=== PATIENT | female | born 1960 | race Caucasian/White ===

== ENCOUNTER 2023-04-17 11:29 | Emergency (ER) | payer MEDICARE, OTHER, SELFPAY ==
[2023-04-17 11:33] VITALS: BP 140/100
[2023-04-17 11:58] LABS: % Eosinophils 5.2 % (0-6); % Immature Granulocytes 0.2 % (0-0.5); % Lymphocytes 31.1 % (20.5-51.1); % Monocytes 9.4 % (1.7-9.3); % Neutrophils 53.1 % (42.2-75.2); Absolute Basophils 0.1 10^3/uL (0-0.2); Absolute Eosinophils 0.3 10^3/uL (0-0.7); Absolute Lymphocytes 1.5 10^3/uL (1.2-3.4); Absolute Monocytes 0.5 10^3/uL (0.1-0.6); Absolute Neutrophils 2.5 10^3/uL (1.4-6.5); Hematocrit 42.5 % (37.0-47.0); Hemoglobin 14.7 g/dL (12.0-16.0); Mean Corp Hgb Conc. 34.6 g/dL (33.0-37.0); Mean Corpuscular Hgb 32.5 pg (27.0-31.0); Mean Corpuscular Volume 93.8 fL (81.0-99.0); Mean Platelet Volume 9.2 fL (7.4-10.4); Nucleated Red Blood Cells % 0 %; Platelet Count 236 10^3/uL (130-400); Red Blood Cell Count 4.53 10^6/uL (4.20-5.40); Red Cell Dist. Width 12.1 % (11.5-14.5); White Blood Cell Count 4.8 10^3/uL (4.8-10.8)
[2023-04-17 12:13] LABS: ALT (SGPT) 18 U/L (0-35); AST (SGOT) 27 U/L (14-36); Albumin 4.2 g/dl (3.5-5.0); Alkaline Phosphatase 65 U/L (38-126); Blood Urea Nitrogen 23 mg/dl (7-17); Calcium 9.4 mg/dl (8.4-10.2); Carbon Dioxide 29 mmol/L (22-30); Chloride 99 mmol/L (98-107); Glucose 107 mg/dl (70-99); Potassium 4.1 mmol/L (3.5-5.1); Sodium 138 mmol/L (135-145); Total Bilirubin 0.5 mg/dl (0.2-1.3); Total Protein 7.2 g/dl (6.3-8.2); eGFR > 60.00
--- NOTE | 2023-04-17 12:49 | ED.GENMED ---
History of Present Illness
General
Chief Complaint: Heart Rate Problem
Source: patient and physician
Time Seen by Provider: 04/17/23 12:33
Travel History
Have you had any contact with someone who has COVID-19?: No
Do you have any symptoms of coronavirus? Fever > 100 degrees, chills, cough, shortness of breath, sore throat, loss of taste or smell, muscle aches, or headache?: No
History of Present Illness
History of Present Illness:
63-year-old female with past medical history of atrial fibrillation, sick sinus syndrome status post pacemaker placement presenting to the emergency department from outpatient cardiology office where she was found to be in A-fib/a flutter noting
that over the last few days she has been feeling palpitations and intermittent shortness of breath. Patient had her pacemaker interrogated which revealed the paroxysmal a flutter. Patient has been taking her propafenone for the last 2 days with
minimal relief. She also notes a 13 pound weight gain from her last office visit with cardiology in January. At time of my exam patient's symptoms are all resolved and she has no other concerns. She denies any chest pain, diaphoresis, lower
extremity edema, cough, fevers or infectious symptoms or recent illnesses or any other concerns presently.
Past History
Past History
ED Past Medical History: Arrthythmia, HTN, Psychiatric (Depression, anxiety), Other (Growth Hormone deficiancy, [place], osteoarthritis, gastritis, movement disorder, migraine headaches, constipation) and Other; Negative Asthma, COPD,
Hypercholesterolemia, IDDM or Hypothyroidism
ED Past Surgical History: Other (Cervical laminectomy, facial nerve surgery, breast lumpectomy, hysterectomy, 3 wrist surgeries, foot surgery Reconstruction of the pelvis, intestine and vaginal area with mesh implant)
Social History
Tobacco: Former smoker
Alcohol: Occasional
Drug: None
Personal:
Living: with family
Employment: Disabled
Family History
Family History: Hypertension
Review of Systems
Review of Systems
All Other Systems: ROS reviewed and negative except as documented in HPI and ROS
Phy Exam
Physical Exam
Physical Exam:
GENERAL: Alert , in no apparent distress
EYE: clear conjunctiva
NECK: Supple
ENT: o/p clr, mmm.
CARDIAC: Regular rate and rhythm, no murmur.
LUNGS: Clear breath sounds bilaterally, no acute respiratory distress, no wheezes/rales/rhonchi
ABDOMEN: Soft, without focal tenderness, no r/g, no cvat
NEUROLOGICAL: Alert and oriented
SKIN: Warm and dry, skin intact.
MUSCULOSKELETAL: No edema, well perfused.
PSYCH: Normal and appropriate interaction.
Scores
[id number] Score for Afib Stroke Risk
Age in Years (65=0, 65-74=1, >/=75=2): <65
Sex (Female=+1): Female
Congestive Heart Failure History (Yes=+1): No
Hypertension History (Yes=+1): No
Stroke/TIA/Thromboembolism History (Yes=+2): No
Vascular Disease History (Yes=+1): No
Diabetes Mellitus (Yes=+1): No
Score: 1
Anticoagulation Recommendations: Consider anticoagulation (as validated in nonvalvular fib)
Heart Failure Risk
Heart Failure Risk Score: Not Applicable
Heart Score for Chest Pain Patients
STEMI patient?: Not applicable
Withdrawal Assessment of Alcohol
Withdrawal Assessment Completed?: Not applicable
Course
Orders/Labs/Results
Orders:
Orders
04/17/23 11:35
Electrocardiogram (*1) Urgent
Reason for Study: Chest Pain
EKG- Treatment ONCE
04/17/23 11:47
Complete Blood Count/With Diff Urgent
Comprehensive Metabolic Panel Urgent
NT-proBNP Urgent
Comment: ADD ON
04/17/23 12:34
Apixaban [Eliquis] 5 mg PO NOW STA
Furosemide [Lasix] 40 mg PO NOW STA
Metoprolol Xl [Toprol Xl] 50 mg PO NOW STA
04/17/23 12:56
Add On- LAB Urgent
Tests Added?: BNP
CR Chest - 2 Views Urgent
Comment:
Reason For Exam: afib/aflutter, palpitations
Abnormal Lab Results
04/17/23
11:47
MCH 32.5 H pg
(27.0-31.0)
Monocytes % 9.4 H %
(1.7-9.3)
BUN 23 H mg/dl
(7-17)
Glucose 107 H mg/dl
(70-99)
04/17/23 11:47
04/17/23 11:47
Vital Signs
Initial and Last Documented VS:
Initial Vital Signs
Temp Pulse Resp BP Pulse Ox
98.3 F 76 18 140/100 97
04/17/23 11:33 04/17/23 11:33 04/17/23 11:33 04/17/23 11:33 04/17/23 11:33
Last Documented Vital Signs
Temp Pulse Resp BP Pulse Ox
98.3 F 60 17 135/79 97
04/17/23 11:33 04/17/23 13:24 04/17/23 13:15 04/17/23 13:24 04/17/23 13:16
MDM/Problems Addressed
Differential Diagnosis Includes:
afib/aflutter, CHF, electrolyte imbalance
MDM/Problems Addressed:
63-year-old female presenting to the emergency department from cardiology's office after being found to be in A-fib/a flutter with an increased weight gain. Pacemaker was interrogated and patient was found to have multiple paroxysmal episodes of a
flutter. On arrival to the emergency department patient's heart rate is now back to normal and she is asymptomatic. Cardiology consulted on the patient and are recommending patient to get 50 mg Toprol XL, 40 mg of Lasix p.o. and start patient on
oral anticoagulation with 5 mg of Eliquis. They would like patient to be discharged with these medications but given a dose of each prior to discharge. Will also obtain a chest x-ray. Anticipate discharge pending continued stability.
Chronic conditions affecting care: Arrhythmia
Acute Exacerbation and/or Progression of Chronic Illness: Arrhythmia
*Radiology
Radiology exam reviewed: preliminary read by ED provider (Pacemaker in place but otherwise no complications)
*Pulse Oximetry
Patient hypoxic: no
*EKG
Interpreted by ED Provider?: Yes
Comparison EKG: no changes
Heart Rate: 86
Rhythm: av sequential
*Perianesthesia Manager Interpretation
Rate: normal
Rhythm: av sequential
*Critical Care Note
Total Time (30-74mins, 75-104mins- exclusive of procedures): Not Applicable
Data Reviewed
Review of Other/Old Records Reveals: Labs and Records
Source: patient and physician
Patient Management
Discussion with other providers: Slate Handler
Escalation/DeEscalation of care consider admission/obs:
Patient's labs unremarkable. Her heart rate remains in a paced rhythm without any ectopy or dysrhythmia. Patient maintains she is asymptomatic as well. Patient will discontinue her Rythmol. She will be started on 50 mg metoprolol extended
release once daily, 40 mg of Lasix once daily and Eliquis 5 mg twice daily. Patient will contact cardiology office for follow-up. Aware of return precautions emergency department but otherwise stable for discharge home.
ED Attending Note
-
Portions of this chart may have been created with voice recognition software.� Occasional wrong word or��sound alike� substitutions may have occurred due to the inherent limitations of voice recognition software.
Discharge Plan
Departure
Patient Disposition: Home (Routine Discharge)
Date of Disposition: 04/17/23
Time of Disposition: 14:12
Patient with high blood pressure during this ER visit?: Yes
Discharge Problem:
Paroxysmal atrial flutter
Instructions: Atrial Flutter (DC)
Prescriptions:
New
metoprolol succinate 50 mg tablet extended release 24 hr
50 mg PO DAILY Qty: 30 0RF
Eliquis 5 mg tablet
5 mg PO BID Qty: 60 0RF
furosemide [Lasix] 40 mg tablet
40 mg PO DAILY Qty: 30 0RF
No Action
tramadol 50 MG tablet
50 mg PO DAILY
Patient Comments:
04/17/2023, could not find on PDMP.
primidone 50 mg tablet
50 mg PO BID
tamsulosin 0.4 mg capsule
0.4 mg PO BID
lamotrigine [Lamictal] 100 mg tablet
100 mg PO BID
turmeric 400 mg Capsule
400 mg PO DAILY
Vitamin D3-Zinc
1 tab PO DAILY
Patient Comments:
04/17/2023, contains quercetin and vitamin C as well.
loperamide [Imodium] 2 mg Capsule
4 mg PO DAILYPRN PRN (Reason: diarrhea)
propranolol 60 mg Capsule,Extended Release 24 Hr
60 mg PO DAILY
tramadol 50 mg Tablet
50 mg PO HSPRN PRN (Reason: mild pain)
Patient Comments:
04/17/2023, could not find on PDMP.
bisacodyl 10 mg Suppository
10 mg [place] DAILY PRN (Reason: constipation)
diphenhydramine HCl [Benadryl] 25 mg Capsule
50 mg PO HS PRN (Reason: sleep)
esomeprazole magnesium 40 mg Capsule,Delayed Release(Dr/Ec)
40 mg PO DAILY PRN (Reason: gerd)
ibuprofen [Advil] 200 mg Tablet
600 mg PO BIDPRN PRN (Reason: mild pain)
diphenhydramine-acetaminophen [Tylenol PM Extra Strength] 25-500 mg Tablet
1 tab PO HS PRN (Reason: sleep)
Referrals:
Mayelin Monae CRNP [Specified Professional Personl] - (Please call for appointment to have a close follow up office visit)
UNKNOWN - PT DOES,NOT KNOW [Family Provider] -
Interventions
Interventions:
*Risk Screen - Suicide Last Done: 04/17/23 11:33
*General Assessment Last Done: 04/17/23 14:50
*Neglect/Abuse Screening Last Done: 04/17/23 11:33
ED- Fall Risk Assessment Last Done: 04/17/23 14:50
*ED COVID-19 Vaccine History Last Done: 04/17/23 11:33
*Nursing Disposition Last Done: 04/17/23 14:50
ED- Cardiac Assessment Last Done: 04/17/23 13:16
ED- Pulmonary Assessment Last Done: 04/17/23 13:16
[2023-04-17 13:15] VITALS: BP 135/75
[2023-04-17] MEDS: TOPROL XL 50 MG PO (13:24)
[2023-04-17] MEDS: ELIQUIS 5 MG PO (13:24)
[2023-04-17] MEDS: LASIX 40 MG PO (13:24)
[2023-04-17 13:52] LABS: NT-proBNP 506 pg/ml
== END 2023-04-17 14:51 | disposition home or self-care (01) ==
LOC: EMR 11:29
PROVIDERS: Emergency Medicine; EMERGENCY PHYSICIAN Emergency Medicine
DX: I48.92 Unspecified atrial flutter (principal); Z95.0 Presence of cardiac pacemaker; Z87.891 Personal history of nicotine dependence; R03.0 Elevated blood-pressure reading, without diagnosis of hypertension
CPT/HCPCS: 99285; 93288; 71046; 80053; 83880; 85025; 93005

== ENCOUNTER → 2023-04-25 10:04 | Day surgery (SDC) | payer MEDICARE, OTHER, SELFPAY ==
[2023-04-25 11:54] VITALS: BMI 28.2
== END ==
LOC: CATH 10:04
PROVIDERS: ATTENDING PHYSICIAN Internal Medicine Cardiovascular Disease; OTHER PHYSICIAN Internal Medicine Cardiovascular Disease
DX: I48.19 Other persistent atrial fibrillation (principal); I34.0 Nonrheumatic mitral (valve) insufficiency; I49.5 Sick sinus syndrome; Z95.0 Presence of cardiac pacemaker; I10 Essential (primary) hypertension; G51.0 Bell's palsy; Z87.891 Personal history of nicotine dependence; Z79.01 Long term (current) use of anticoagulants
CPT/HCPCS: 93312; 93320; 93325; 92960; 93005

== ENCOUNTER 2023-06-18 16:59 | Emergency (ER) | payer MEDICARE, OTHER, SELFPAY ==
[2023-06-18 17:04] VITALS: BP 154/108
--- NOTE | 2023-06-18 18:22 | ED.GENMED ---
History of Present Illness
General
Chief Complaint: Urinary Symptoms
Source: patient
Exam Limitations: none
Time Seen by Provider: 06/18/23 17:52
Travel History
Have you had any contact with someone who has COVID-19?: No
Do you have any symptoms of coronavirus? Fever > 100 degrees, chills, cough, shortness of breath, sore throat, loss of taste or smell, muscle aches, or headache?: No
History of Present Illness
History of Present Illness:
This is a 63 year old female that comes in with c/o not being able to urinate. States that she stared to feel funny yesterday. States that she then drove 2-3 hours to come visit a friend today. States that by the time she got there she was unable to
urinate. States that she does take Flomax. States that she feels SOB and that her abd is sore. States that she also had some left sided back pain. Denies any fever, chills, chest pain, nausea, vomiting, diarrhea, headache, urinary burning.
Past History
Past History
ED Past Medical History: Arrthythmia (Atrial fib), HTN, Seizures, Psychiatric (Depression, anxiety), Other (Growth Hormone deficiency, [place] Palsy, osteoarthritis, gastritis, movement disorder, migraine headaches, constipation, Tremors, Bladder
prolapse) and Other; Negative Asthma, COPD, Hypercholesterolemia, IDDM or Hypothyroidism
ED Past Surgical History: Bowel resection (Colectomy), Cardiac (pacemaker), Gynecological (Pelvic reconstruction. Hysterectomy, [place] Lympectomy X 3), Orthopedic (Cervical laminectomy, Multiple wrist surgery, ), Urological (Ureteral stent, ) and
Other ( facial nerve surgery, intestine and vaginal area with mesh implant)
Social History
Tobacco: Former smoker
Alcohol: Daily (wine 2 glasses)
Drug: None
Personal:
Living: with family
Employment: Disabled
Family History
Family History: Hypertension
Review of Systems
Review of Systems
All Other Systems: ROS reviewed and negative except as documented in HPI and ROS
Constitutional: Reports no symptoms; Denies fever or chills
EENT: Reports no symptoms
Respiratory: Reports trouble breathing; Denies cough
Cardiac: Reports no symptoms; Denies chest pain
ABD/GI: Reports abdominal pain; Denies nausea, vomiting or diarrhea
: Reports difficulty voiding; Denies dysuria, frequency or urgency
Musculoskeletal: Reports no symptoms
Skin: Reports no symptoms
Neurological: Reports no symptoms; Denies dizzy or headache
Psychiatric: Reports no symptoms
Phy Exam
General Physical Exam
General Presentation: mild distress
General age: appears stated age
General Skin: warm and dry
General Habitus: normal
General Mental: tearful
General Hydration: appears well hydrated
ENT Exam
ENT Exam: TM's normal, pharynx normal and neck supple
Eye Exam
Eye Exam: EOMI
Cardiovascular Exam
Cardiovascular Exam: regular rate/rhythm, no edema and normal peripheral pulses
Pulmonary Exam
Pulmonary Exam: lungs clear, no respiratory distress, no rales, chest non tender, no crackles, no rhonchi, no wheezing and no cough
Gastrointestinal Exam
Gastrointestinal Exam: normal bowel sounds, non tender, soft, no organomegaly, no pulsatile mass and non distended
Musculoskeletal Exam
Musculoskeletal Exam: full ROM and no edema
Skin Exam
Skin Exam: normal color, warm/dry, no rash and no petechia
Psychiatric Exam
Psychiatric Exam: anxious
Course
Orders/Labs/Results
Orders:
Orders
06/18/23 18:09
Straight cath- Treatment ONCE
0.9% Sodium Chloride 1000 ml [Nss] 1,000 ml IV BOLUS
06/18/23 18:31
Complete Blood Count/With Diff Urgent
Comprehensive Metabolic Panel Urgent
Urinalysis Reflex To Culture Urgent
Date Specimen was Collected: 06/18/23
Time Specimen was Collected: 18:25
Urine Microscopic Reflex Cult Urgent
06/18/23 19:17
CT Abd/pel Without Iv Or Oral Urgent
Comment:
Reason For Exam: Difficulty urinating,
Abnormal Lab Results
06/18/23
18:31
MCH 31.8 H pg
(27.0-31.0)
Monocytes % 9.7 H %
(1.7-9.3)
BUN 21 H mg/dl
(7-17)
Urine Ketones Trace A
(Negative)
Ur Occult Blood Reflex Trace A
(Negative)
Urine RBC 3-6 A /HPF
(0-2)
06/18/23 18:31
06/18/23 18:31
Vital Signs
Initial and Last Documented VS:
Initial Vital Signs
Temp Pulse Resp BP Pulse Ox
98.8 F 72 20 154/108 95
06/18/23 17:04 06/18/23 17:04 06/18/23 17:04 06/18/23 17:04 06/18/23 17:04
Last Documented Vital Signs
Temp Pulse Resp BP Pulse Ox
98.8 F 72 20 154/108 95
06/18/23 17:04 06/18/23 17:04 06/18/23 17:04 06/18/23 17:04 06/18/23 17:04
MDM/Problems Addressed
Differential Diagnosis Includes:
Pyelonephritis, UTI, Renal calculus
MDM/Problems Addressed:
This is a 63 year old female that comes in with c/o not being able to urinate. States that she felt something funny yesterday and then today she drove 2-3 hours to come visit her friend. States that by the time she got there shew as unable to
urinate.
Will check labs, Bladder scan, Straight cath and Urine. Will give IV fluids.
back into see patient. Explained that her blood work shows that she is dehydrated. Your CT is negative for any renal calculus. Your kidneys and bladder are normal. Please increase your water intake to 8-8oz glasses daily. Follow up with the Family
doctor and your urologist when you get home. IF YOU HAVE ANY OTHER CONCERNS PLEASE RETURN TO THE EMERGENCY ROOM.
Chronic conditions affecting care: Other (Renal stents)
Acute Exacerbation and/or Progression of Chronic Illness:
NA
*Radiology
Radiology exam reviewed: radiology read reviewed (CT-NO convincing evidence for urinary tract calculi. No focal abnormality of the unenhanced kidneys or bladder. Fatty infiltration of the liver. 8mm cyst within the right lobe of the liver, stable.
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 Evidence of previous partial colectomy ), all reviewed NAD by ED Provider (CT cont- with ileocolonic anastomosis in the right upper quadrant. No evidence for bowel obstruction. No
evidence of free intraperitoneal air. Moderate amount of stool within the colon as well as the distal ileum, but no evidence for bowel wall thickening with no findings to suggest stercoral ) and other (Ct cont= to suggest stercoral colitis. Bony
degenerative changes as described. )
*Pulse Oximetry
Patient hypoxic: no
*EKG
Interpreted by ED Provider?: NA
Rate: EKG- N/A
*Automatic Machines Supervisor Interpretation
Rate: Automatic Machines Supervisor- N/A
*Critical Care Note
Total Time (30-74mins, 75-104mins- exclusive of procedures): Not Applicable
ED Attending Note
-
Portions of this chart may have been created with voice recognition software.� Occasional wrong word or��sound alike� substitutions may have occurred due to the inherent limitations of voice recognition software.
Discharge Plan
Departure
Patient Disposition: Home (Routine Discharge)
Date of Disposition: 06/18/23
Time of Disposition: 22:03
Patient with high blood pressure during this ER visit?: Yes
Condition: Good
Covid-19: Not Applicable
Discharge Problem:
Dehydration
Instructions: Dehydration, Adult (DC), BLOOD PRESSURE
Prescriptions:
No Action
primidone 50 mg tablet
50 mg PO BID
tamsulosin 0.4 mg capsule
0.4 mg PO BID
lamotrigine [Lamictal] 100 mg tablet
100 mg PO BID
loperamide [Imodium] 2 mg Capsule
4 mg PO DAILYPRN PRN (Reason: diarrhea)
bisacodyl 10 mg Suppository
10 mg [place] DAILY PRN (Reason: constipation)
diphenhydramine HCl [Benadryl] 25 mg Capsule
50 mg PO HS PRN (Reason: sleep)
esomeprazole magnesium 40 mg Capsule,Delayed Release(Dr/Ec)
40 mg PO DAILY PRN (Reason: gerd)
ibuprofen [Advil] 200 mg Tablet
600 mg PO BIDPRN PRN (Reason: mild pain)
diphenhydramine-acetaminophen [Tylenol PM Extra Strength] 25-500 mg Tablet
1 tab PO HS PRN (Reason: sleep)
Eliquis 5 mg tablet
5 mg PO BID Qty: 60 0RF
furosemide [Lasix] 40 mg tablet
40 mg PO DAILY Qty: 30 0RF
Ascorbic Acid (Vitamin C)
800 mg PO DAILY
propafenone 150 mg Tablet
150 mg PO TID
tramadol [Ultram] 50 mg Tablet
50 mg PO BID
cholecalciferol (vitamin D3) [Vitamin D3] 125 mcg (5,000 unit) Tablet
125 mcg PO DAILY
Magnesium
250 mg PO DAILY
Turmeric
1,000 mg PO DAILY
Zinc
30 mg PO DAILY
metoprolol succinate 50 mg tablet extended release 24 hr
75 mg PO BID
Referrals:
UNKNOWN - PT NOT,INTERVIEWE [Family Provider] -
Activity Restrictions/Additional Instructions:
As discussed, your blood work shows that you are dehydrated. Please increase your water intake to 8-8z glasses daily. Please continue with your Flomax as prescribed. Follow up with the family doctor and your Urologist. Your CT does show a Mesenteric
panniculitis which is most likely a viral syndrome and may cause some abd discomfort. Your may also have diarrhea. IF YOU HAVE ANY OTHER CONCERNS PLEASE RETURN TO THE EMERGENCY ROOM.
Interventions
Interventions:
*Risk Screen - Suicide Last Done: 06/18/23 17:04
*General Assessment Last Done: 06/18/23 17:04
*Neglect/Abuse Screening Last Done: 06/18/23 17:04
ED-Female Genitourinary Assessment Last Done: 06/18/23 19:37
Discharge Date and Time
Print Language: [place]
[2023-06-18] MEDS: NSS 1000 IV (18:33)
[2023-06-18 18:40] LABS: % Basophils 0.9 % (0-2); % Eosinophils 3.5 % (0-6); % Immature Granulocytes 0.2 % (0-0.5); % Lymphocytes 26.1 % (20.5-51.1); % Monocytes 9.7 % (1.7-9.3); % Neutrophils 59.6 % (42.2-75.2); Absolute Basophils 0.1 10^3/uL (0-0.2); Absolute Eosinophils 0.2 10^3/uL (0-0.7); Absolute Lymphocytes 1.7 10^3/uL (1.2-3.4); Absolute Monocytes 0.6 10^3/uL (0.1-0.6); Absolute Neutrophils 3.8 10^3/uL (1.4-6.5); Hematocrit 38.6 % (37.0-47.0); Hemoglobin 13.5 g/dL (12.0-16.0); Mean Corpuscular Hgb 31.8 pg (27.0-31.0); Mean Platelet Volume 8.7 fL (7.4-10.4); Nucleated Red Blood Cells % 0 %; Platelet Count 236 10^3/uL (130-400); Red Blood Cell Count 4.24 10^6/uL (4.20-5.40); Red Cell Dist. Width 12.2 % (11.5-14.5); White Blood Cell Count 6.4 10^3/uL (4.8-10.8)
[2023-06-18 18:41] LABS: Urine Albumin Trace (Neg - Trace); Urine Bilirubin Negative (Negative); Urine Character Clear (Clear); Urine Color Yellow; Urine Glucose Negative (Negative); Urine Ketone Trace (Negative); Urine Leukocyte Negative (Negative); Urine Nitrite Negative (Negative); Urine Occult Blood Trace (Negative); Urine Specific Gravity 1.025 (<1.030); Urine Urobilinogen Negative (Neg - 1+)
[2023-06-18 18:53] LABS: Urine White Cell None Seen /HPF (0-5)
[2023-06-18 18:55] LABS: ALT (SGPT) 13 U/L (0-35); AST (SGOT) 26 U/L (14-36); Albumin 4.5 g/dl (3.5-5.0); Alkaline Phosphatase 72 U/L (38-126); Blood Urea Nitrogen 21 mg/dl (7-17); Calcium 9.6 mg/dl (8.4-10.2); Carbon Dioxide 30 mmol/L (22-30); Chloride 102 mmol/L (98-107); Glucose 97 mg/dl (70-99); Potassium 4.4 mmol/L (3.5-5.1); Sodium 138 mmol/L (135-145); Total Bilirubin 0.4 mg/dl (0.2-1.3); Total Protein 7.6 g/dl (6.3-8.2); eGFR > 60.00
[2023-06-18 22:23] VITALS: BP 144/96
== END 2023-06-18 22:35 | disposition home or self-care (01) ==
LOC: EMR 16:59
PROVIDERS: Clinical Nurse Specialist Family Health; EMERGENCY PHYSICIAN Emergency Medicine
DX: E86.0 Dehydration (principal); I48.91 Unspecified atrial fibrillation; I10 Essential (primary) hypertension; G40.909 Epilepsy, unspecified, not intractable, without status epilepticus; F41.8 Other specified anxiety disorders; E23.0 Hypopituitarism; M19.90 Unspecified osteoarthritis, unspecified site; Z82.49 Family history of ischemic heart disease and other diseases of the circulatory system; Z87.19 Personal history of other diseases of the digestive system; Z87.891 Personal history of nicotine dependence; Z90.49 Acquired absence of other specified parts of digestive tract; Z90.710 Acquired absence of both cervix and uterus; Z95.0 Presence of cardiac pacemaker
CPT/HCPCS: 99284; 96360; 74176; 80053; 81003; 81015; 85025

== ENCOUNTER 2024-03-01 20:28 | Observation (INO) | payer MEDICARE, OTHER, SELFPAY ==
[2024-03-01] VITALS (7 sets, daily range): BP systolic 137–170; BP diastolic 83–99; BMI 30.1
[2024-03-01 17:15] LABS: % Eosinophils 4.2 % (0-6); % Immature Granulocytes 0.2 % (0-0.5); % Lymphocytes 26.9 % (20.5-51.1); % Monocytes 12.3 % (1.7-9.3); % Neutrophils 55.4 % (42.2-75.2); Absolute Basophils 0.1 10^3/uL (0-0.2); Absolute Eosinophils 0.2 10^3/uL (0-0.7); Absolute Lymphocytes 1.4 10^3/uL (1.2-3.4); Absolute Monocytes 0.6 10^3/uL (0.1-0.6); Absolute Neutrophils 2.8 10^3/uL (1.4-6.5); Hematocrit 36.6 % (37.0-47.0); Hemoglobin 12.4 g/dL (12.0-16.0); Mean Corp Hgb Conc. 33.9 g/dL (33.0-37.0); Mean Corpuscular Hgb 31.8 pg (27.0-31.0); Mean Corpuscular Volume 93.8 fL (81.0-99.0); Mean Platelet Volume 9.1 fL (7.4-10.4); Nucleated Red Blood Cells % 0 %; Platelet Count 203 10^3/uL (130-400); Red Cell Dist. Width 12.1 % (11.5-14.5); White Blood Cell Count 5.1 10^3/uL (4.8-10.8)
[2024-03-01 17:25] LABS: ALT (SGPT) 48 U/L (0-35); AST (SGOT) 66 U/L (14-36); Alkaline Phosphatase 59 U/L (38-126); Blood Urea Nitrogen 21 mg/dl (7-17); Calcium 9.2 mg/dl (8.4-10.2); Carbon Dioxide 30 mmol/L (22-30); Chloride 100 mmol/L (98-107); Estimated Creatinine Clearance 101 ml/min; Glucose 99 mg/dl (70-99); Potassium 3.9 mmol/L (3.5-5.1); Sodium 137 mmol/L (135-145); Total Bilirubin 0.5 mg/dl (0.2-1.3); Total Protein 6.6 g/dl (6.3-8.2); eGFR > 60.00
[2024-03-01 17:37] LABS: NT-proBNP 92.5 pg/ml; Troponin I < 0.012 ng/ml
--- NOTE | 2024-03-01 17:45 | ED.GENMED ---
History of Present Illness
General
Chief Complaint: Cardiac Symptoms
Source: patient
Exam Limitations: none
Time Seen by Provider: 03/01/24 17:14
Nursing documentation reviewed up to this point in time: agreed with
History of Present Illness
History of Present Illness:
63-year-old female with a past medical history of Almonte's palsy, atrial fibrillation who presents to the emergency department for evaluation of palpitations, shortness of breath and chest/shoulder discomfort. Patient reports that she was at [employer]
pushing the shopping cart this afternoon when she began to have sudden onset of shortness of breath, dizziness, palpitations and shoulder/upper back discomfort. She says that the symptoms lasted for a few minutes and were significant enough to
cause her to sit down to rest. She says with a few minutes of rest symptoms resolved however she has noticed symptoms return with exertion since then and ultimately came to the ER to be evaluated. She denies any symptoms at present. She denies
any associated chest pain rather describes a discomfort/palpitation sensation. She does have a history of A-fib but says that the symptoms feels somewhat dissimilar to her normal A-fib symptoms. She follows with Dr. Frederick for cardiology. She is
on Eliquis for A-fib.
Past History
Past History
ED Past Medical History: Arrthythmia (Atrial fib), HTN, Seizures, Psychiatric (Depression, anxiety), Other (Growth Hormone deficiency, Perham Palsy, osteoarthritis, gastritis, movement disorder, migraine headaches, constipation, Tremors, Bladder
prolapse) and Other; Negative Asthma, COPD, Hypercholesterolemia, IDDM or Hypothyroidism
ED Past Surgical History: Bowel resection (Colectomy), Cardiac (pacemaker), Gynecological (Pelvic reconstruction. Hysterectomy, Brest Lympectomy X 3), Orthopedic (Cervical laminectomy, Multiple wrist surgery, ), Urological (Ureteral stent, ) and
Other ( facial nerve surgery, intestine and vaginal area with mesh implant)
Social History
Tobacco: Former smoker
Alcohol: Daily (wine 2 glasses)
Drug: None
Personal:
Living: with family
Employment: Disabled
Family History
Family History: Hypertension
Review of Systems
Review of Systems
All Other Systems: ROS reviewed and negative except as documented in HPI and ROS
Constitutional: Denies fever
Respiratory: Reports trouble breathing; Denies cough
Cardiac: Reports palpitations; Denies chest pain or syncope
ABD/GI: Denies abdominal pain, nausea or vomiting
: Denies flank pain
Musculoskeletal: Reports back pain; Denies neck pain
Neurological: Reports dizzy; Denies headache
Phy Exam
Physical Exam
Physical Exam:
General: Awake, alert, oriented x3; no acute distress
Head: Normocephalic, atraumatic
Eyes: Conjunctiva normal, sclera anicteric
Throat: Airway intact, handling secretions
Neck: Trachea midline, supple without meningismus
Lungs: Clear to auscultation bilaterally, no wheezing, rales, rhonchi
Heart: Regular rate and rhythm, no murmurs, gallops, or rubs
Abd: Soft, non distended, nontender
Neuro: No gross deficits
Skin: no rash
Extremities: No edema in extremities, equal pulses in all extremities
Scores
Heart Failure Risk
Heart Failure Risk Score: Not Applicable
Heart Score for Chest Pain Patients
STEMI patient?: Not applicable
Withdrawal Assessment of Alcohol
Withdrawal Assessment Completed?: Not applicable
Course
Orders/Labs/Results
Orders:
Orders
03/01/24 15:49
EKG [Electrocardiogram (*1)] Urgent
Reason for Study: Atrial Fibrillation
EKG- Treatment ONCE
03/01/24 17:04
BNP [NT-proBNP] Urgent
CBC/With Diff [Complete Blood Count/With Diff] Urgent
CMP [Comprehensive Metabolic Panel] Urgent
Troponin I Urgent
03/01/24 17:18
CR Chest - 2 Views Urgent
Comment:
Reason For Exam: sob
03/01/24 17:32
D-Dimer Urgent
03/01/24 17:49
Interrogate Pacemaker- Treatment ONCE
03/01/24 18:47
CARDIOLOGY CONSULT Urgent
Consulting Provider: Chyna Peralta
Was physician already notified: Yes
03/01/24 20:00
Troponin I Urgent
Abnormal Lab Results
03/01/24
17:04
RBC 3.90 L 10^6/uL
(4.20-5.40)
Hct 36.6 L %
(37.0-47.0)
MCH 31.8 H pg
(27.0-31.0)
Monocytes % 12.3 H %
(1.7-9.3)
BUN 21 H mg/dl
(7-17)
AST 66 H U/L
(14-36)
ALT 48 H U/L
(0-35)
03/01/24 17:04
03/01/24 17:04
Vital Signs
Initial and Last Documented VS:
Initial Vital Signs
Temp Pulse Resp BP Pulse Ox
37.0 C 77 20 137/90 96
03/01/24 15:51 03/01/24 15:51 03/01/24 15:51 03/01/24 15:51 03/01/24 15:51
Last Documented Vital Signs
Temp Pulse Resp BP Pulse Ox
37.0 C 61 19 147/88 95
03/01/24 15:51 03/01/24 19:00 03/01/24 19:00 03/01/24 19:00 03/01/24 19:00
MDM/Problems Addressed
Differential Diagnosis Includes:
Anginal symptoms/ACS, paroxysmal atrial fibrillation, PVCs, SVT/atrial tach, PE, CHF
MDM/Problems Addressed:
63-year-old female present for evaluation of exertional breathlessness, dizziness, chest discomfort/palpitations that started this afternoon. Vitals and exam as above. EKG shows sinus rhythm. Will place an IV send labs including a CBC and a CMP,
troponin. Check D-dimer. Check a chest x-ray. Will interrogate her device. Reassess after the above.
Labs reviewed: CBC unremarkable, CMP no clinically significant abnormalities�marginal transaminitis unclear acute clinical significance but no signs or symptoms of hepatobiliary pathology. D-dimer negative. Troponin initially negative will trend.
Chest x-ray reviewed by me no acute disease. Case discussed with cardiology�will plan to admit for trending of troponins, cardiology consultation. N.p.o. past midnight. Case discussed with hospitalist for admission.
Chronic conditions affecting care:
Atrial fib
*Radiology
Radiology exam reviewed: preliminary read by ED provider and radiology read reviewed
*Pulse Oximetry
Patient hypoxic: no
*EKG
Interpreted by ED Provider?: Yes
Heart Rate: 65
Rate: normal
Rhythm: sinus
[place]: normal axis
Interval: normal interval
QRS Pattern: normal QRS
Ischemia: non-specific ST changes
*Critical Care Note
Total Time (30-74mins, 75-104mins- exclusive of procedures): Not Applicable
Data Reviewed
Review of Other/Old Records Reveals: Labs and Records
Source: patient and records
Patient Management
Discussion with other providers: Hospitalist (Discussed with hospitalist)
Escalation/DeEscalation of care consider admission/obs:
Admission indicate
ED Attending Note
-
Portions of this chart may have been created with voice recognition software.� Occasional wrong word or��sound alike� substitutions may have occurred due to the inherent limitations of voice recognition software.
Discharge Plan
Departure
Patient Disposition: Admit
Date of Disposition: 03/01/24
Time of Disposition: 19:23
Admit to doctor: Bennie
Presentation/result/management discussed w/ accepting MD/DO: Hospitalist
Discharge Problem:
Exertional dyspnea, Palpitations, Chest discomfort
Prescriptions:
No Action
primidone 50 mg tablet
50 mg PO BID
tamsulosin 0.4 mg capsule
0.4 mg PO BID
lamotrigine [Lamictal] 100 mg tablet
100 mg PO BID
loperamide [Imodium] 2 mg Capsule
4 mg PO DAILYPRN PRN (Reason: diarrhea)
bisacodyl 10 mg Suppository
10 mg ND DAILY PRN (Reason: constipation)
diphenhydramine HCl [Benadryl] 25 mg Capsule
50 mg PO HS PRN (Reason: sleep)
esomeprazole magnesium 40 mg Capsule,Delayed Release(Dr/Ec)
40 mg PO DAILY PRN (Reason: gerd)
ibuprofen [Advil] 200 mg Tablet
600 mg PO BIDPRN PRN (Reason: mild pain)
diphenhydramine-acetaminophen [Tylenol PM Extra Strength] 25-500 mg Tablet
1 tab PO HS PRN (Reason: sleep)
Eliquis 5 mg tablet
5 mg PO BID Qty: 60 0RF
furosemide [Lasix] 40 mg tablet
40 mg PO DAILY Qty: 30 0RF
Ascorbic Acid (Vitamin C)
800 mg PO DAILY
propafenone 150 mg Tablet
150 mg PO TID
tramadol [Ultram] 50 mg Tablet
50 mg PO BID
cholecalciferol (vitamin D3) [Vitamin D3] 125 mcg (5,000 unit) Tablet
125 mcg PO DAILY
Magnesium
250 mg PO DAILY
Turmeric
1,000 mg PO DAILY
Zinc
30 mg PO DAILY
metoprolol succinate 50 mg tablet extended release 24 hr
75 mg PO BID
Referrals:
UNKNOWN - PT DOES,NOT KNOW [Family Provider] -
Interventions
Interventions:
*Risk Screen - Suicide Last Done: 03/01/24 15:51
*General Assessment Last Done: 03/01/24 15:51
*Neglect/Abuse Screening Last Done: 03/01/24 15:51
ED- Fall Risk Assessment Last Done: 03/01/24 17:00
ED- Pulmonary Assessment Last Done: 03/01/24 17:00
ED- Cardiac Assessment Last Done: 03/01/24 17:00
Discharge Date and Time
Print Language: KHMER
[2024-03-01 17:52] LABS: D-Dimer < 0.27 ug/mlFEU (0.00-0.50)
[2024-03-01] MEDS: LOW STRENGTH ASPIRIN 324 MG PO (19:49)
--- NOTE | 2024-03-01 20:08 | HPS.HSE ---
Family Physician
-
Family Physician: NOT KNOW UNKNOWN - PT DOES
Chief Complaint
-
Chest Pain, MA
History of Present Illness
Patient is a 63y F with PMH significant for hypertension, paroxysmal A-Fib and CHF who presents to ED complaining of chest pain and SOB. Patient notes that her is currently admitted here at for CHF and new ESRD. Patient was walking
through a store today around 12:30 PM when she developed chest tightness, SOB, 'cold, clammy' feeling and diaphoresis. Patient sat down and her symptoms resolved. When she stood and began walking her symptoms recurred. She has had persistence of
this for the past several hours - symptoms occurring with exertion and then resolving / improving with rest.
She states that current sensation does not feel similar to prior episodes of tachyarrhythmia with A-Fib that she has had.
In the ED she is resting comfortably - though she reports intermittent / brief episodes of palpitations / chest tightness even at rest.
Patient was previously followed here in [facility] by [facility] Card[facility].
She moved to [place], [place] and has been followed there mor recently.
In September of this year she underwent PVI Ablation at [facility].
Patient states that - following that procedure - she has had new issues with CHF and HTN.
Medical History
Past Medical History
Past Medical History: Reports Other
Additional Past Medical History:
Paroxysmal Atrial Fibrillation
SSS s/p PPM
HF - Unknown Type
Hypertension
Left Almonte's Palsy
Essential Tremor
Partial Seizure Disorder
Bipolar Disorder
Colonic Inertia
EDGARDO on CPAP
Past Surgical History: Reports Other
Additional Past Surgical History:
Hysterectomy
Carpal Tunnel Surgery
Right Shoulder Surgery
PVI Ablation (September 2023)
Colon Resection
Cervical Laminectomy
Social History
Tobacco: Former Smoker (Quit smoking about 30y ago. Approx 20 pack years total use.)
Alcohol: Occasional (2 glasses of wine, 3-5 days per week. Recently increased per patient.)
Drug: None
Personal:
Family History
Family History: Not pertinent
Allergies / Home Medications
Allergies reflects when Allergies were last updated in [employer].
Home Medications with original date entered in [employer]
Allergy/Medication List:
Allergies
Allergy/AdvReac Type Severity Reaction Status Date / Time
azithromycin [From Zithromax] Allergy Rash Verified 06/18/23 17:07
Influenza Virus Vaccines Allergy sick/neuros Verified 06/18/23 17:07
is
prednisone Allergy mental Verified 06/18/23 17:07
disturbance
steroids Allergy mental Uncoded 06/18/23 17:07
disturbance
Home Medications
lamotrigine 100 mg tablet (Lamictal) 100 mg PO DAILY 01/02/23
primidone 50 mg tablet 50 mg PO BID 01/02/23
tamsulosin 0.4 mg capsule 0.4 mg PO BID 01/02/23
apixaban 5 mg tablet (Eliquis) 5 mg PO BID #60 tabs 04/17/23
diphenhydramine 25 mg-acetaminophen 500 mg tablet (Tylenol PM Extra Strength) 1 tab PO HSPRN PRN sleep 04/17/23
ibuprofen 200 mg tablet (Advil) 600 mg PO BIDPRN PRN mild pain 04/17/23
metoprolol succinate 50 mg tablet,extended release 24 hr 50 mg PO DAILY 04/25/23
tramadol 50 mg tablet 50 mg PO BID 04/25/23
Z-Stack 1 cap PO DAILY 03/01/24
furosemide 40 mg tablet (Lasix) 40 mg PO BID 03/01/24
lamotrigine 25 mg tablet (Lamictal) 50 mg PO NOON 03/01/24
losartan 50 mg tablet 25 mg PO DAILY 03/01/24
pantoprazole 40 mg tablet,delayed release (Protonix) 40 mg PO DAILY 03/01/24
Review of Systems
-
History Source: Patient
A 12 point ROS was completed and negative except as noted: Yes
Constitutional: Reports Fatigue; Denies Fever, Weight Gain, Weight Loss or Chills
EENT: Denies Sore Throat
Respiratory: Reports Trouble Breathing; Denies Cough
Cardiac: Reports Chest Pain, Diaphoresis and Palpitations; Denies Syncope
Abdomen/GI: Denies Abdominal Pain, Nausea, Vomiting or Diarrhea
: Denies Dysuria or Frequency
Musculoskeletal: Denies Joint Pain or Edema
Neurological: Reports Dizzy; Denies Headache
Psych: Reports Depression and Anxiety
Physical Exam
Vital Signs
Vital Signs
Temp Pulse Resp BP Pulse Ox
98.6 F 61 19 147/88 95
03/01/24 15:51 03/01/24 19:00 03/01/24 19:00 03/01/24 19:00 03/01/24 19:00
Physical Exam
General: Other (63y F in no acute distress.)
HEENT: Moist mucous membranes, PERRLA and Other (Chronic L facial droop secondary to Almonte's palsy.)
Respiratory: Clear; No Wheezes, Rales or Rhonchi
Cardiac: S1/S2 and Regular Rhythm; No Murmur
GI: Soft, Non Tender, Non Distended and Normal Bowel Sounds
Musculoskeletal: No Clubbing, No Cyanosis and Other (Trace edema b/l ankles.)
Neuro: AO x 3
Laboratory Results
-
03/01/24 17:04
03/01/24 17:04
Laboratory Results
Total Bilirubin 0.5 mg/dl (0.2-1.3) 03/01/24 17:04
AST 66 U/L (14-36) H 03/01/24 17:04
ALT 48 U/L (0-35) H 03/01/24 17:04
Alkaline Phosphatase 59 U/L (38-126) 03/01/24 17:04
Troponin I < 0.012 ng/ml 03/01/24 17:04
Impression/Plan
-
A/P: Patient is a 63y F with PMH significant for A-Fib, CHF and hypertension who presents to ED complaining of chest pain and SOB.
Chest Pain
- Observe overnight for further evaluation and treatment.
- Symptom constellation concerning for ACS in patient with multiple risk factors.
- EKG with non-specific ST changes - but appears improved from April tracing.
- Initial troponin undetectable - continue to trend.
- Continue ASA, metoprolol, etc.
- Follow symptoms, serial trop, etc.
- Cardiology evaluation for additional recommendations.
Paroxysmal Atrial Fibrillation
SSS s/p PPM
- Stable. Intermittent A-pacing noted on tele.
- s/p ablation at [facility] in September.
- Interrogation performed in the ED - report pending.
- Continue current medications including Eliquis for stroke risk reduction.
Chronic HF- Unknown Type
- Stable. Does not appear grossly overloaded at present. BNP unremarkable.
- Continue current Lasix and monitor I/Os, daily weights, etc.
- Update Echo.
Benign Hypertension
- Stable. Continue current med regimen and adjust as needed.
Partial Seizure Disorder
Essential Tremor
Bipolar Disorder
- Stable. Continue current med regimen and monitor for any new symptoms.
DVT Prophylaxis: On Eliquis
Code Status: Full
[2024-03-01 20:30] LABS: Troponin I < 0.012 ng/ml
--- NOTE | 2024-03-01 22:00 | PTCARENOTE ---
Patient walked into her room. Patient AAOX3. Patient is npo at midnight. MSAS protocol initiated. Patient oriented to room, no complaints of chest pain. Call maria within reach. Will continue with current plan.
[2024-03-01 22:41] LABS: Magnesium 2.2 mg/dl (1.6-2.3)
[2024-03-01 22:43] LABS: Troponin I < 0.012 ng/ml
[2024-03-01] MEDS: ELIQUIS 5 MG PO (23:05)
[2024-03-01] MEDS: LASIX 40 MG PO (23:05)
[2024-03-01] MEDS: FLOMAX 0.4 MG PO (23:05)
[2024-03-01] MEDS: MYSOLINE 50 MG PO (23:07)
[2024-03-02 02:05] VITALS: BP 131/85
[2024-03-02] MEDS: TYLENOL 650 MG PO (02:12)
[2024-03-02 03:20] VITALS: BP 146/87
[2024-03-02 04:30] LABS: Hematocrit 37.8 % (37.0-47.0); Hemoglobin 13.4 g/dL (12.0-16.0); Mean Corp Hgb Conc. 35.4 g/dL (33.0-37.0); Mean Corpuscular Hgb 32.4 pg (27.0-31.0); Mean Corpuscular Volume 91.3 fL (81.0-99.0); Mean Platelet Volume 9.2 fL (7.4-10.4); Platelet Count 202 10^3/uL (130-400); Red Blood Cell Count 4.14 10^6/uL (4.20-5.40); Red Cell Dist. Width 11.9 % (11.5-14.5); White Blood Cell Count 4.5 10^3/uL (4.8-10.8)
[2024-03-02 05:08] LABS: Blood Urea Nitrogen 17 mg/dl (7-17); Calcium 9.1 mg/dl (8.4-10.2); Carbon Dioxide 28 mmol/L (22-30); Chloride 102 mmol/L (98-107); Estimated Creatinine Clearance 101 ml/min; Glucose 114 mg/dl (70-99); HDL Cholesterol 57 mg/dl; LDL Cholesterol, Calculated 98 mg/dl; Sodium 140 mmol/L (135-145); Total Cholesterol 167 mg/dl (50-199); Triglyceride 63 mg/dl (10-149); Very Low Density Lipoprotein 12 mg/dl (0-30); eGFR > 60.00
[2024-03-02 05:26] LABS: Troponin I < 0.012 ng/ml
[2024-03-02 06:00] VITALS: BMI 30.1
[2024-03-02 07:27] VITALS: BP 115/66
--- NOTE | 2024-03-02 08:17 | CON.CAR ---
Addendum entered and electronically signed by Abel Smith MD 03/02/24 11:00:
I saw and examined the patient.
The CMV DRIVER's note was reviewed and I agree with the note.
Comment:
This is a 63-year-old female with past medical history of paroxysmal atrial fibrillation on Eliquis (PVI at [facility] in summer 2023), sick sinus syndrome status post pacemaker, EDGARDO on CPAP, and HFpEF who presented to the ER after an episode of
shortness of breath and dizziness. 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 She also has been experiencing shortness of breath on exertion for the past 1 year. Her
symptoms got worse after her A-fib ablation this summer. Physical exam is notable for a well-appearing woman in no apparent distress, cardiovascular with regular rate and rhythm, no murmurs/rubs/gallops, lungs are clear to auscultation bilaterally,
and she has no lower extremity edema. Labs are notable for troponin <0.012, LDL 98, total cholesterol 167. Echocardiogram reveals normal biventricular function with mild LVH and no significant valvular disease. ECG with atrial paced rhythm and
dynamic inferior T wave inversions. Device interrogation shows short (longest 3 seconds) runs of NSVT on 02/26 (not the day of her symptoms). Her symptoms are somewhat atypical for obstructive epicardial coronary artery disease, but we should rule
this out with a stress test. We will attempt to do it during admission, but if she would prefer to go home and have it done as an outpatient this is a reasonable option as well.
Original Note:
Consultation
Consultation Request
Date/Time Consultation Requested: 03/01/241846
Date/Time Consultation Performed: 03/02/24 08
Requesting Provider: Dr. Escobar
Performing Provider: Moira OCHOA for Dr. Smith
Reason for Consultation: chest discomfort
Medical History
-
Chief Complaint: SOB, palpitations, dizziness
History of Present Illness:
63 y/o female (previous patient of Dr. Frederick, switched to [place] possibly Dr. Quinones?, and planning to switch back to Dr. Frederick again) with PAF on Eliquis, atrial flutter, SSS s/p MDT dual chamber pacemaker, EDGARDO on CPAP, anxiety, Almonte's palsy, seizures,
bipolar disorder, HTN, CHF (type unknown), LVH, pericarditis, tremor, fomer smoker/lung disease, and GERD who is here for evaluation of SOB, palpitations, and dizziness with associated chest tightness and shoulder tightness, which started yesterday
around 1230 when she was pushing a cart in [employer]. It is better with rest and recurs with activity (though not walking from bed to bathroom here). She was admitted for further eval. EKG's look similar to previous. Trops are normal. Echo this AM
pending. Of note, she had an AFIB ablation in [place] in September 2023. She reports that post procedure course was complicated by CHF (type unknown), pericarditis (resolved after about 3 months), and hypertension. She was also told she had LVH. Lasix
and losartan were added to her regimen. She is in no distress at the time of my assessment. Of note, breathing has not felt right most of this year, but no worse currently. She tells me hert is presently hospitalized as well.
Past Medical History
Past Medical History: Arrhythmias, HTN, Seizures, Psychiatric (bipolar disorder per chart) and Other (as noted above)
Social History
Tobacco: Former Smoker
Alcohol: Other (3-5 days per week 2-3 glasses)
Personal:
Family History
Family History: Adopted
Allergies / Home Medications
Allergy/AdvReac Type Severity Reaction Status Date / Time
azithromycin [From Zithromax] Allergy Rash Verified 06/18/23 17:07
Influenza Virus Vaccines Allergy sick/neuros Verified 06/18/23 17:07
is
prednisone Allergy mental Verified 06/18/23 17:07
disturbance
steroids Allergy mental Uncoded 06/18/23 17:07
disturbance
�Medication �Instructions �Recorded �Confirmed �Type
lamotrigine 100 mg tablet 100 mg PO DAILY Seizures 01/02/23 03/01/24 History
(Lamictal)
primidone 50 mg tablet 50 mg PO BID Seizures 01/02/23 03/01/24 History
tamsulosin 0.4 mg capsule 0.4 mg PO BID Urinary Issue 01/02/23 03/01/24 History
apixaban 5 mg tablet (Eliquis) 5 mg PO BID #60 tabs 04/17/23 03/01/24 Rx
diphenhydramine 25 1 tab PO HSPRN PRN sleep 04/17/23 03/01/24 History
mg-acetaminophen 500 mg tablet
(Tylenol PM Extra Strength)
ibuprofen 200 mg tablet (Advil) 600 mg PO BIDPRN PRN mild pain 04/17/23 03/01/24 History
metoprolol succinate 50 mg 50 mg PO DAILY Heart 04/25/23 03/01/24 History
tablet,extended release 24 hr Disease/Condition
tramadol 50 mg tablet 50 mg PO BID Pain 04/25/23 03/01/24 History
Z-Stack 1 cap PO DAILY 03/01/24 03/01/24 History
furosemide 40 mg tablet (Lasix) 40 mg PO BID Fluid 03/01/24 03/01/24 History
Retention/Swelling
lamotrigine 25 mg tablet (Lamictal) 50 mg PO NOON Seizures 03/01/24 03/01/24 History
losartan 50 mg tablet 25 mg PO DAILY Blood Pressure 03/01/24 03/01/24 History
pantoprazole 40 mg tablet,delayed 40 mg PO DAILY Gastrointestinal 03/01/24 03/01/24 History
release (Protonix) Issue
Review of Systems
-
History Source: Patient
All other systems: Negative unless noted
Constitutional: Other (dizziness)
Respiratory: Trouble Breathing
Cardiac: Chest Pain and Palpitations
Musculoskeletal: Other (shoulder tightness)
Physical Exam
Vital Signs
Temp Pulse Resp BP Pulse Ox
98.4 F 67 20 115/66 95
03/02/24 07:27 03/02/24 07:27 03/02/24 07:27 03/02/24 07:27 03/02/24 07:27
Lab Results
03/02/24 04:17
03/02/24 04:17
Troponin I < 0.012 ng/ml 03/02/24 04:17
[id number] Pept 92.5 pg/ml 03/01/24 17:04
Physical Exam
General: Well Developed, Well Nourished and No Apparent Distress
HEENT: Normocephalic and Anicteric
Respiratory: Clear and Non Labored Respirations
Cardiac: Regular Rhythm
Musculoskeletal: No Edema
Skin: Warm and Dry
Neuro: AO x 3
Psych: Calm
Impression / Plan
-
SOB, palpitations, dizziness, chest/shoulder discomfort:
-noted with exertion
-follow tele, check echo
-likely stress test as well. Risk factors include HTN and former smoker.
-of note, I reviewed device interrogation and there were no concerning arrhythmias noted yesterday. However, there has been some recent brief NSVT. Here on tele I do see short run SVT. Continue BB- may increase.
PAF:
-stable in SR
-hx ablation
-continue metoprolol and Eliquis
CHF: chronic, type unknown
-check echo
-continue Lasix
-does not appear volume overloaded
SSS:
-stable s/p pacemaker
HTN:
-continue meds and monitor
Elevated liver tests:
-w/u and management per primary
Data Reviewed
-
EKG: Tracing Personally Visualized and interpreted (03/01/24: NST with non-specific t abnormality- no acute change)
Radiology: Report Reviewed by me (CXR: Rounded density in the right cardiophrenic angle, compatible with pericardial fat pad, as seen on prior CT. No evidence of active cardiopulmonary disease.)
Medical Tests (Nuc Med, Echo etc): Report Reviewed by me (TRACEE 04/25/23: EF 55 to 60%. Mild mitral regurgitation.) and Other (nuclear stress test, lexiscan 04/14/21: EF >75%, perfusion ikmaging reveals small area of mildly decreased that is fixed in the
apex segment c/w with soft tissue attenuation)
Labs: Labs Reviewed by me
[2024-03-02] MEDS: MYSOLINE 50 MG PO (09:39)
[2024-03-02] MEDS: LAMICTAL 100 MG PO (09:39)
[2024-03-02] MEDS: TOPROL XL 50 MG PO (09:39)
[2024-03-02] MEDS: FOLVITE 1 MG PO (09:39)
[2024-03-02] MEDS: LOW STRENGTH ASPIRIN 81 MG PO (09:39)
[2024-03-02] MEDS: PROTONIX 40 MG PO (09:39)
[2024-03-02] MEDS: LASIX 40 MG PO (09:39)
[2024-03-02] MEDS: ELIQUIS 5 MG PO (09:39)
[2024-03-02] MEDS: COZAAR 25 MG PO (09:39)
[2024-03-02] MEDS: FLOMAX 0.4 MG PO (09:39)
[2024-03-02] MEDS: THIAMINE INJECTION 200 MG IV (09:40)
[2024-03-02] MEDS: ULTRAM 50 MG PO (09:55)
[2024-03-02 10:03] LABS: Troponin I < 0.012 ng/ml
--- NOTE | 2024-03-02 10:49 | CM ---
Addendum entered by Mayelin Martinez 03/02/24 11:01:
CM received consult for substance use counseling, CM discussed with patient and offered resources, patient not interested at this time.
Original Note:
CM reviewed chart, patient seen bedside, initial assessment completed. Patient resides with her in [place], [place], multiple story condo, three flights to enter home. Patient reports her is currently a patient here as well, on third
floor. Patient denies use of DME, VN, or SNF history. Patient reports PCP Caridad Carolina, [facility] in [place] ([address] [facility], [facility]). Patient denies insecurities at home. CM reviewed observation status, provided SILVER form. Patient
very upset regarding OBS status, would like to leave if she will remain obs status. TT to UR to determine patient status, if she will be switching to inpatient. Reviewed with nurse. CM will continue to follow for all discharge planning needs.
Plan; home no needs.
[2024-03-02 11:05] VITALS: BP 142/89
--- NOTE | 2024-03-02 12:18 | W.PN.HOSP.TC ---
Today's Communication/Plan
-
stress test
patient relieved that insurance will cover observation stay
Assessment / Plan
Assessment / Plan
Patient is a 63y F with PMH significant for A-Fib on Eliquis, CHF and hypertension who presents to ED complaining of chest pain and SOB.
TTE
CONCLUSIONS
Normal biventricular size and function. LVEF 60-65%.
Poor endocardial visualization limits wall motion analysis.
Mild concentric left ventricular hypertrophy.
No significant valvular disease.
Compared to prior echocardiogram on 11/22/2022, biventricular function is
unchanged. Degree of tricuspid regurgitation has improved. PASP is now 32
mmHg from 37 mmHg.
Chest Pain
- Symptom constellation concerning for ACS in patient with multiple risk factors.
- EKG with non-specific ST changes - but appears improved from April tracing.
- Initial troponin undetectable - continue to trend.
- Continue ASA, metoprolol,
- Cardiology evaluation - recommending stress test
Paroxysmal Atrial Fibrillation
SSS s/p PPM
- Stable. Intermittent A-pacing noted on tele.
- s/p ablation at [facility] in September.
- Interrogation performed in the ED - NSVT does not correspond with symptoms
- Continue TRANSPORT MEDIC Eliquis
Chronic HF- Unknown Type
- Stable. Does not appear grossly overloaded at present. BNP unremarkable.
- Continue current Lasix and monitor I/Os, daily weights, etc.
- TTE results above
Benign Hypertension
- Stable. Continue current med regimen and adjust as needed.
Partial Seizure Disorder
Essential Tremor
Bipolar Disorder
- Stable. Continue current med regimen and monitor for any new symptoms.
DVT Prophylaxis: On Eliquis
Code Status: Full
Anticipated Discharge: 24 - 48 hours
Subjective/Interval History
-
Date of Service: March 02, 2024
short of breath with exertion
Objective Data
-
Labs:
Laboratory Results
03/02/24
04:17
WBC 4.5 L
Hgb 13.4
Hct 37.8
Plt Count 202
Sodium 140
Potassium 4.0
Chloride 102
Carbon Dioxide 28
BUN 17
Creatinine 0.7
Glucose 114 H
Calcium 9.1
Vital Signs:
Vital Signs
Temp Pulse Resp BP Pulse Ox
98.3 F 82 20 142/89 93
03/02/24 11:05 03/02/24 11:05 03/02/24 11:05 03/02/24 11:05 03/02/24 11:05
I&O
03/01/24 03/02/24 03/03/24
06:59 06:59 06:59
Intake Total 240 / 240
Balance 240 / 240
Review of Systems
-
History Source: Patient
All other systems: Reviewed and negative
Physical Exam
-
General: Other (tachypneic post moving around)
HEENT: PERRLA
Respiratory: Negative Wheezes
Cardiac: Regular Rhythm and S1/S2
GI: Soft and Nontender
Musculoskeletal: No Edema
Skin: Warm and Dry; Negative Rash
Neuro: AO x 3
Data Reviewed
-
Diagnostic Radiology: Report Reviewed by me
Labs: Labs Reviewed by me
[2024-03-02] MEDS: LAMICTAL 50 MG PO (12:43)
[2024-03-02 15:16] VITALS: BP 130/81
--- NOTE | 2024-03-02 16:32 | W.DS.TRANS ---
DC Summary - Control Panel Tester
-
Discharge Instructions:
Discharge Diagnosis/Procedures shortness of breath with exertion
Activity As tolerated
Driving Restrictions As prior to admission
Bathing Restrictions None
Others Tests Nuclear lexiscan stress test- office will call
you to arrange
Instructions:
Stand-Alone Forms:
Changes to Home Medications: No
Discharge Medications:
DC Medications w/original date entered in [facility]
lamotrigine 100 mg tablet (Lamictal) 100 mg PO DAILY Seizures 01/02/23
primidone 50 mg tablet 50 mg PO BID Seizures 01/02/23
tamsulosin 0.4 mg capsule 0.4 mg PO BID Urinary Issue 01/02/23
apixaban 5 mg tablet (Eliquis) 5 mg PO BID #60 tabs 04/17/23
diphenhydramine 25 mg-acetaminophen 500 mg tablet (Tylenol PM Extra Strength) 1 tab PO HSPRN PRN sleep 04/17/23
metoprolol succinate 50 mg tablet,extended release 24 hr 50 mg PO DAILY Heart Disease/Condition 04/25/23
tramadol 50 mg tablet 50 mg PO BID Pain 04/25/23
Z-Stack 2 cap PO DAILY 03/01/24
furosemide 40 mg tablet (Lasix) 40 mg PO BID Fluid Retention/Swelling 03/01/24
lamotrigine 25 mg tablet (Lamictal) 50 mg PO NOON Seizures 03/01/24
losartan 50 mg tablet 25 mg PO DAILY Blood Pressure 03/01/24
pantoprazole 40 mg tablet,delayed release (Protonix) 40 mg PO DAILY Gastrointestinal Issue 03/01/24
Home Medication Changes
Pending Results: No
--- NOTE | 2024-03-02 16:33 | W.DCSUMMARY ---
Discharge Summary
Discharge Data
Date of Admission: 03/01/24
Date of Discharge: 03/02/24
-
Pending Results: No
Hospital Course
Discharging Physician : Dr. Anahi Wei
Disposition : Home
Principal Discharge diagnosis : shortness of breath
Hospital Course :
Ms. Aminata Osorio is a 63 yo woman with hx Afib on Eliquis, CHF, essential HTN who presents to the ER with chest pain and shortness of breath on exertion. Triage vitals stable. Labs with normal renal function, Troponin negative. Lung exam
without wheezing. She was admitted for cardiology evaluation and went an echo stress test on 03/02. Given Metoprolol taken earlier she was unable to reach goal heart rate. Per cardiology, Ok for DC with plans for outpatient nuclear stress test.
Discussed with patient who feels ready for discharge. No changes made to home medications.
Time spent on discharge was 31 minutes.
Important imaging findings :
ECHO INTERPRETATION
Resting images revealed normal left ventricular size and function. No regional
wall motion abnormalities were seen. The estimated ejection fraction is 55-
60%.
Post-Exercise Echo Interpretation
On the immediate post exercise images, there is normal left ventricular
augmentation and wall thickening. No regional wall motion abnormalities are
seen. No evidence of myocardial ischemia. Estimated ejection fraction is 65-
70%.
Procedure findings :
Discharge Plan
-
Patient Disposition: Home (Routine Discharge)
Discharge Diagnosis/Procedures: shortness of breath with exertion
Activity: As tolerated
Driving Restrictions: As prior to admission
Bathing Restrictions: None
Others Tests: Nuclear lexiscan stress test- office will call you to arrange
Referrals:
Jean-Claude Frederick MD [Active] - (Office will call you to arrange)
UNKNOWN - PT DOES,NOT KNOW [Family Provider] - in less than 1 week
Prescriptions:
Continued
primidone 50 mg tablet
50 mg PO BID
tamsulosin 0.4 mg capsule
0.4 mg PO BID
lamotrigine [Lamictal] 100 mg tablet
100 mg PO DAILY
diphenhydramine-acetaminophen [Tylenol PM Extra Strength] 25-500 mg Tablet
1 tab PO HSPRN PRN (Reason: sleep)
Eliquis 5 mg tablet
5 mg PO BID Qty: 60 0RF
tramadol 50 mg Tablet
50 mg PO BID
metoprolol succinate 50 mg tablet extended release 24 hr
50 mg PO DAILY
losartan 50 mg Tablet
25 mg PO DAILY
lamotrigine [Lamictal] 25 mg Tablet
50 mg PO NOON
furosemide [Lasix] 40 mg tablet
40 mg PO BID
pantoprazole [Protonix] 40 mg Tablet,Delayed Release (Dr/Ec)
40 mg PO DAILY
Z-Stack capsule
2 cap PO DAILY
Patient Comments:
Quercetin & Rutin Supplements, Vitamin C Supplements ,
Vitamin D Supplements Review (Including Calcium, Magnesium, Vitamin K, and [place])
Discontinued
ibuprofen [Advil] 200 mg Tablet
600 mg PO BIDPRN PRN (Reason: mild pain)
Discharge Orders:
Discharge Patient (As Directed); Ordered 03/02/24
Ordered By: Anahi Wei
Discharge Date and Time
Print Language: MOHAWK
== END 2024-03-02 18:05 | disposition home or self-care (01) ==
LOC: 4 WEST ACU 20:28
PROVIDERS: Student in an Organized Health Care Education/Training Program; ADMITTING PHYSICIAN Hospitalist; ATTENDING PHYSICIAN Student in an Organized Health Care Education/Training Program; EMERGENCY PHYSICIAN Emergency Medicine; OTHER PHYSICIAN Student in an Organized Health Care Education/Training Program
DX: R06.02 Shortness of breath (principal); R00.2 Palpitations; I48.0 Paroxysmal atrial fibrillation; R42 Dizziness and giddiness; M54.6 Pain in thoracic spine; I50.30 Unspecified diastolic (congestive) heart failure; G25.0 Essential tremor; G47.33 Obstructive sleep apnea (adult) (pediatric); F31.9 Bipolar disorder, unspecified; G40.109 Localization-related (focal) (partial) symptomatic epilepsy and epileptic syndromes with simple partial seizures, not intractable, without status epilepticus; I11.0 Hypertensive heart disease with heart failure; M19.90 Unspecified osteoarthritis, unspecified site; Z79.01 Long term (current) use of anticoagulants; Z87.19 Personal history of other diseases of the digestive system; Z95.0 Presence of cardiac pacemaker; Z90.49 Acquired absence of other specified parts of digestive tract; Z82.49 Family history of ischemic heart disease and other diseases of the circulatory system; Z87.891 Personal history of nicotine dependence; Z88.7 Allergy status to serum and vaccine; Z88.1 Allergy status to other antibiotic agents; Z88.8 Allergy status to other drugs, medicaments and biological substances; R07.89 Other chest pain; I47.20 Ventricular tachycardia, unspecified
CPT/HCPCS: 93261; 93017; 71046; 80048; 80053; 80061; 83735; 83880; 84484; 85025; 85027; 85379; 87070; 93005; 93288; 93306; 93350; 99285; G0378; Q9950

== ENCOUNTER 2024-03-22 18:23 | Inpatient (IN) | payer MEDICARE, OTHER, SELFPAY ==
[2024-03-22] VITALS (11 sets, daily range): BP systolic 94–135; BP diastolic 62–102; BMI 28.8
[2024-03-22 14:47] LABS: % Basophils 1.1 % (0-2); % Eosinophils 3.4 % (0-6); % Immature Granulocytes 0.2 % (0-0.5); % Lymphocytes 31.6 % (20.5-51.1); % Neutrophils 55.7 % (42.2-75.2); Absolute Basophils 0.1 10^3/uL (0-0.2); Absolute Eosinophils 0.2 10^3/uL (0-0.7); Absolute Lymphocytes 1.5 10^3/uL (1.2-3.4); Absolute Monocytes 0.4 10^3/uL (0.1-0.6); Absolute Neutrophils 2.6 10^3/uL (1.4-6.5); Hematocrit 41.1 % (37.0-47.0); Hemoglobin 14.5 g/dL (12.0-16.0); Mean Corp Hgb Conc. 35.3 g/dL (33.0-37.0); Mean Corpuscular Hgb 32.3 pg (27.0-31.0); Mean Corpuscular Volume 91.5 fL (81.0-99.0); Mean Platelet Volume 9.5 fL (7.4-10.4); Nucleated Red Blood Cells % 0 %; Platelet Count 244 10^3/uL (130-400); Red Blood Cell Count 4.49 10^6/uL (4.20-5.40); Red Cell Dist. Width 11.9 % (11.5-14.5); White Blood Cell Count 4.7 10^3/uL (4.8-10.8)
--- NOTE | 2024-03-22 14:47 | ED.GENMED ---
History of Present Illness
General
Chief Complaint: Dizziness
Source: patient
Exam Limitations: none
Time Seen by Provider: 03/22/24 14:38
History of Present Illness
History of Present Illness:
Patient started about 3 days ago with fatigue weakness shortness of breath with exertion and lightheadedness. Some muscle aches. No fever no cough. Shortness of breath with minimal symptoms on exertion. Recent admission for chest pain.
Past History
Past History
ED Past Medical History: Arrthythmia (Atrial fib), HTN, Seizures, Psychiatric (Depression, anxiety), Other (Growth Hormone deficiency, [place] Palsy, osteoarthritis, gastritis, movement disorder, migraine headaches, constipation, Tremors, Bladder
prolapse) and Other; Negative Asthma, COPD, Hypercholesterolemia, IDDM or Hypothyroidism
ED Past Surgical History: Bowel resection (Colectomy), Cardiac (pacemaker), Gynecological (Pelvic reconstruction. Hysterectomy, [place] Lympectomy X 3), Orthopedic (Cervical laminectomy, Multiple wrist surgery, ), Urological (Ureteral stent, ) and
Other ( facial nerve surgery, intestine and vaginal area with mesh implant)
Social History
Tobacco: Former smoker
Alcohol: Daily (wine 2 glasses)
Drug: None
Personal:
Living: with family
Employment: Disabled
Family History
Family History: Hypertension
Review of Systems
Review of Systems
All Other Systems: Not applicable
Constitutional: Reports fatigue; Denies fever
Respiratory: Reports trouble breathing
Cardiac: Reports palpitations; Denies chest pain or syncope
Phy Exam
Physical Exam
Physical Exam:
GENERAL: Alert and oriented in no apparent distress
EYE: Orbits normal.
NECK: Supple, no carotid bruit
CARDIAC: Irregular irregular. Tachycardic
LUNGS: Clear breath sounds,normal
ABDOMEN: Soft, without focal tenderness or distention
NEUROLOGICAL: Alert and oriented , speech normal. 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 Motor or sensory neurovascular intact otherwise
SKIN: Warm and dry, no rash or lesion, no discoloration, skin intact.
MUSCULOSKELETAL: No edema,no deformity.Good color
PSYCH: Normal and appropriate interaction.
Course
Orders/Labs/Results
Orders:
Orders
03/22/24 14:01
EKG [Electrocardiogram (*1)] Urgent
Reason for Study: Atrial Fibrillation
03/22/24 14:02
EKG- Treatment ONCE
03/22/24 14:30
Complete Blood Count/With Diff Urgent
Comprehensive Metabolic Panel Urgent
NT-proBNP Urgent
Comment: ADD ON
Troponin I Urgent
03/22/24 14:46
Cardiac Monitoring- Treatment ONCE
CR Chest - 2 Views Urgent
Comment:
Reason For Exam: Short of breath
Pulse Ox/cont/shift [RESP] Stat
Quantity: 1
03/22/24 14:49
Add On- LAB Urgent
Tests Added?: BNP
03/22/24 14:50
Diltiazem 125 mg/125 ml Nss [Cardizem] 125 mg in 125 ml IV NOW
Initial dose in mg/hr, then titrate:: 5
Titrate to keep:: Heart rate 80-100 bpm
Titrate by mg/hr:: 5 mg/hr
Frequency of titrations (minutes):: 15
Maximum dose in mg/hr:: 15
Diltiazem HCl [Cardizem] 10 mg IV NOW STA
03/22/24 16:56
Furosemide [Lasix] 20 mg IV NOW STA
03/22/24 18:13
Admit/Transfer Patient As Directed
Co-Sign Provider:
Level of Care: Inpatient admission
Assign to:: Telemetry
Physician / Group: [email or web address]
Diagnosis: Fast AF, suspet acute on chr HFpEF
Reason for Telemetry: Arrhythmia
Date to Stop Telemetry: 03/25/24
Time to Stop Telemetry: 11:00
Reason for Hospitalization: Fast AF, suspect acute on chr HFpEF
Expected length of stay greater than two midnights?: Yes
ELOS- Estimated Length of Stay in days: 3
I certify the patient meets the requirements for IP care: Yes
03/22/24 18:16
Code Status As Directed
Resuscitation Status: Full Code
03/25/24 11:00
DC Protocol for Telemetry ONCE
Abnormal Lab Results
03/22/24
14:30
WBC 4.7 L 10^3/uL
(4.8-10.8)
MCH 32.3 H pg
(27.0-31.0)
Glucose 108 H mg/dl
(70-99)
AST 38 H U/L
(14-36)
03/22/24 14:30
03/22/24 14:30
Vital Signs
Initial and Last Documented VS:
Initial Vital Signs
Temp Pulse Resp Pulse Ox
97.8 F 89 20 98
03/22/24 14:03 03/22/24 14:03 03/22/24 14:03 03/22/24 14:03
Last Documented Vital Signs
Temp Pulse Resp BP Pulse Ox
97.8 F 101 18 120/86 96
03/22/24 14:03 03/22/24 16:08 03/22/24 16:08 03/22/24 16:08 03/22/24 16:08
MDM/Problems Addressed
Differential Diagnosis Includes:
Patient complaining of fatigue shortness of breath lightheadedness started 2 to 3 days ago. Clearly atrial fibrillation RVR. Whether this is the primary and only issue or whether she has other issues to be determined. Would also consider CHF,
underlying viral issue electrolyte abnormality. Workup in progress
*Radiology
Radiology exam reviewed: preliminary read by ED provider (No acute findings) and radiology read reviewed (No acute findings)
*EKG
Interpreted by ED Provider?: Yes
Interpretation: abnormal
Comparison EKG: changes noted
Heart Rate: 139
Rate: tachycardiac
Rhythm: a-fib
Interval: normal interval
QRS Pattern: normal QRS
Ischemia: non-specific ST changes
*Touch Up Painter Interpretation
Rate: tachycardiac
Interpretation: abnormal
Heart Rate: 140
Rhythm: a-fib
*Critical Care Note
Total Time (30-74mins, 75-104mins- exclusive of procedures): 40
Data Reviewed
Review of Other/Old Records Reveals: Labs, Records, Radiology Studies, Testing and Discharge Summary
Update Note
Update Note:
Under significant better rate control. Likely mild component of CHF. Warrants inpatient management. Patient is fusing COVID and flu. Do not think clinically she has this. Was done precautionary. Also do not feel she needs a head CT. Her
symptoms are all consistent with A-fib RVR and mild CHF.
Continuous monitoring of atrial fibrillation RVR with Cardizem drip. Improvement in rate down to the 90s.
ED Attending Note
-
Portions of this chart may have been created with voice recognition software.� Occasional wrong word or��sound alike� substitutions may have occurred due to the inherent limitations of voice recognition software.
Discharge Plan
Departure
Patient Disposition: Admit
Date of Disposition: 03/22/24
Time of Disposition: 16:57
Presentation/result/management discussed w/ accepting MD/DO: Hospitalist
Discharge Problem:
Atrial fibrillation/RVR, Mild CHF
Interventions
Interventions:
*Risk Screen - Suicide Last Done: 03/22/24 14:03
*General Assessment Last Done: 03/22/24 14:03
*Neglect/Abuse Screening Last Done: 03/22/24 14:03
ED- Neurological Assessment Last Done: 03/22/24 14:43
ED Swallowing Screen Last Done: 03/22/24 14:43
[2024-03-22] MEDS: CARDIZEM 10 MG IV (14:54)
[2024-03-22] MEDS: CARDIZEM 125 IV (14:54)
[2024-03-22 14:59] LABS: ALT (SGPT) 27 U/L (0-35); AST (SGOT) 38 U/L (14-36); Albumin 4.3 g/dl (3.5-5.0); Alkaline Phosphatase 67 U/L (38-126); Blood Urea Nitrogen 17 mg/dl (7-17); Calcium 9.1 mg/dl (8.4-10.2); Carbon Dioxide 24 mmol/L (22-30); Chloride 99 mmol/L (98-107); Glucose 108 mg/dl (70-99); Potassium 4.2 mmol/L (3.5-5.1); Sodium 135 mmol/L (135-145); Total Bilirubin 0.9 mg/dl (0.2-1.3); Total Protein 7.1 g/dl (6.3-8.2); eGFR > 60.00
[2024-03-22 15:09] LABS: Troponin I < 0.012 ng/ml
[2024-03-22 15:34] LABS: NT-proBNP 2340 pg/ml
[2024-03-22] MEDS: LASIX 20 MG IV (17:46)
--- NOTE | 2024-03-22 18:09 | HPS.HSE ---
Family Physician
-
Family Physician: NOT KNOW UNKNOWN - PT DOES
Chief Complaint
-
fatigue weakness shortness of breath
History of Present Illness
63F HX PAF, chr Eliquis, hypertension, paroxysmal A-Fib and CHF NOS on PO Lasix seen at ER
- fatigue weakness shortness of breath with exertion and lightheadedness.
- myalgia but no fever no cough.
- shortness of breath with minimal symptoms on exertion.
Medical History
Past Medical History
Past Medical History: Reports Other
Additional Past Medical History:
Paroxysmal Atrial Fibrillation
SSS s/p PPM
HF - Unknown Type
Hypertension
Left Almonte's Palsy
Essential Tremor
Partial Seizure Disorder
Bipolar Disorder
Colonic Inertia
EDGARDO on CPAP
Past Surgical History: Reports Other
Additional Past Surgical History:
Hysterectomy
Carpal Tunnel Surgery
Right Shoulder Surgery
PVI Ablation (September 2023)
Colon Resection
Cervical Laminectomy
Social History
Tobacco: Former Smoker (Quit smoking about 30y ago. Approx 20 pack years total use.)
Alcohol: Occasional (2 glasses of wine, 3-5 days per week. Recently increased per patient.)
Drug: None
Personal:
Family History
Family History: Not pertinent
Allergies / Home Medications
Allergies reflects when Allergies were last updated in [facility].
Home Medications with original date entered in [facility]
Allergy/Medication List:
Allergies
Allergy/AdvReac Type Severity Reaction Status Date / Time
azithromycin [From Zithromax] Allergy Rash Verified 06/18/23 17:07
Influenza Virus Vaccines Allergy sick/neuros Verified 06/18/23 17:07
is
prednisone Allergy mental Verified 06/18/23 17:07
disturbance
steroids Allergy mental Uncoded 06/18/23 17:07
disturbance
Home Medications
lamotrigine 100 mg tablet (Lamictal) 100 mg PO DAILY 01/02/23
primidone 50 mg tablet 50 mg PO BID 01/02/23
tamsulosin 0.4 mg capsule 0.4 mg PO BID 01/02/23
apixaban 5 mg tablet (Eliquis) 5 mg PO BID #60 tabs 04/17/23
diphenhydramine 25 mg-acetaminophen 500 mg tablet (Tylenol PM Extra Strength) 1 tab PO HSPRN PRN sleep 04/17/23
ibuprofen 200 mg tablet (Advil) 600 mg PO BIDPRN PRN mild pain 04/17/23
metoprolol succinate 50 mg tablet,extended release 24 hr 50 mg PO DAILY 04/25/23
tramadol 50 mg tablet 50 mg PO BID 04/25/23
Z-Stack 1 cap PO DAILY 03/01/24
furosemide 40 mg tablet (Lasix) 40 mg PO BID 03/01/24
lamotrigine 25 mg tablet (Lamictal) 50 mg PO NOON 03/01/24
losartan 50 mg tablet 25 mg PO DAILY 03/01/24
pantoprazole 40 mg tablet,delayed release (Protonix) 40 mg PO DAILY 03/01/24
Review of Systems
-
History Source: Patient
A 12 point ROS was completed and negative except as noted: Yes
Constitutional: Reports Fatigue; Denies Fever, Weight Gain, Weight Loss or Chills
EENT: Denies Sore Throat
Respiratory: Reports Trouble Breathing; Denies Cough
Cardiac: Reports Chest Pain, Diaphoresis and Palpitations; Denies Syncope
Abdomen/GI: Denies Abdominal Pain, Nausea, Vomiting or Diarrhea
: Denies Dysuria or Frequency
Musculoskeletal: Denies Joint Pain or Edema
Neurological: Reports Dizzy; Denies Headache
Psych: Reports Depression and Anxiety
Physical Exam
Vital Signs
Vital Signs
Temp Pulse Resp BP Pulse Ox
97.8 F 101 18 120/86 96
03/22/24 14:03 03/22/24 16:08 03/22/24 16:08 03/22/24 16:08 03/22/24 16:08
Physical Exam
General: Other (staccato speech )
HEENT: Moist mucous membranes, PERRLA and Other (Chronic L facial droop secondary to Almonte's palsy.)
Respiratory: Clear; No Wheezes, Rales or Rhonchi
Cardiac: S1/S2 and Regular Rhythm; No Murmur
GI: Soft, Non Tender, Non Distended and Normal Bowel Sounds
Musculoskeletal: No Clubbing, No Cyanosis and Other (Trace edema b/l ankles.)
Neuro: AO x 3
Laboratory Results
-
03/22/24 14:30
03/22/24 14:30
Laboratory Results
Total Bilirubin 0.9 mg/dl (0.2-1.3) 03/22/24 14:30
AST 38 U/L (14-36) H 03/22/24 14:30
ALT 27 U/L (0-35) 03/22/24 14:30
Alkaline Phosphatase 67 U/L (38-126) 03/22/24 14:30
Troponin I < 0.012 ng/ml 03/22/24 14:30
Data Reviewed
-
Medical Tests (Nuc Med, Echo, EKG etc): Report Reviewed by me
Lab Data: Labs Reviewed by me
Impression/Plan
-
Reviewed VS:
Abnormal Lab Results
03/22/24
14:30
WBC 4.7 L
MCH 32.3 H
Glucose 108 H
AST 38 H
Laboratory Tests
03/01/24 03/22/24
17:04 14:30
WBC 4.7 L
Troponin I < 0.012
[id number]-[id number] Pept 92.5 2340
CXR
1. Left-sided cardiac pacemaker in place.
2. Large right pericardial fat pad.
3. Mild subsegmental atelectasis/scarring in the right middle lobe and lingul
EKG
ATRIAL FIBRILLATION WITH RAPID VENTRICULAR RESPONSE
ST and T WAVE ABNORMALITY, CONSIDER INFERIOR ISCHEMIA
ABNORMAL ECG
WHEN COMPARED WITH ECG OF 02-MAR-2024 05:07,
ATRIAL FIBRILLATION HAS REPLACED ELECTRONIC ATRIAL PACEMAKER
VENT. RATE HAS INCREASED BY 78 BPM
NONSPECIFIC T WAVE ABNORMALITY NOW EVIDENT IN LATERAL LEADS
03/12/24 Stress ECHO
Nondiagnostic stress echocardiogram.
The patient's target heart rate was not achieved due to limited functional
capacity and medication effect (metoprolol taken this morning).
No ECG or echocardiographic evidence of ischemia at 79% max predicted heart
rate and 5.5 METS.
03/02/24 TTE
Normal biventricular size and function. LVEF 60-65%.
Poor endocardial visualization limits wall motion analysis.
Mild concentric left ventricular hypertrophy.
No significant valvular disease.
Compared to prior echocardiogram on 11/22/2022, biventricular function is
unchanged. Degree of tricuspid regurgitation has improved. PASP is now 32
mmHg from 37 mmHg.
Last hospitalist admission: Date of Admission: 03/01/24 - Date of Discharge: 03/02/24
Principal Discharge diagnosis : shortness of breath
ASSESSMENT & PLAN
Fast Paroxysmal AF
SSS s/p PPM HX
- s/p ablation at [facility] in September.
- agre with Diltiazem gtt
- cont. FILM ARCHIVIST metoprolol and Eliquis
- CBC card consult
SoB wiht exertion
Significantly higher proBNP r
HX chr HFpEF ; last TTE LVEF 60-65%.
- agree with IV Lasix 20 , cont daily
- cont Metoprolol
- monitor I/Os, daily weights, etc.
- CBC card consult
SSS:
- stable s/p pacemaker
Benign HTN:
-continue meds and monitor
Partial Seizure Disorder
Essential Tremor
Bipolar Disorder
- Stable. Continue current med regimen and monitor for any new symptoms.
DVT Prophylaxis: On Eliquis
Code Status: Full
IP TLM
[2024-03-22] MEDS: FLOMAX 0.4 MG PO (21:31)
[2024-03-22] MEDS: MYSOLINE 50 MG PO (21:31)
[2024-03-22] MEDS: ELIQUIS 5 MG PO (21:31)
[2024-03-23] VITALS (7 sets, daily range): BP systolic 90–126; BP diastolic 62–95; BMI 28.8
[2024-03-23] MEDS: ALDACTONE 12.5 MG PO (08:47)
[2024-03-23] MEDS: COZAAR 50 MG PO (08:51)
[2024-03-23] MEDS: TOPROL XL 50 MG PO ×2 (08:52→20:18)
[2024-03-23] MEDS: ELIQUIS 5 MG PO ×2 (08:52→20:20)
[2024-03-23] MEDS: PROTONIX 40 MG PO (08:52)
[2024-03-23] MEDS: MYSOLINE 50 MG PO ×2 (08:52→20:19)
[2024-03-23] MEDS: LAMICTAL 100 MG PO (08:52)
[2024-03-23] MEDS: FLUSH (NSS) 1 FLUSH IV (08:53)
[2024-03-23] MEDS: FLOMAX 0.4 MG PO ×2 (08:53→20:18)
[2024-03-23] MEDS: LASIX 20 MG IV (08:53)
[2024-03-23] MEDS: CARDIZEM 125 IV (09:33)
--- NOTE | 2024-03-23 10:20 | PTCARENOTE ---
Patient resting in bed this morning, remains in AF with HR 120's at rest. Cardizem infusing at 5mg/hr. Patient states she feels sob even at rest and does not tolerate it well when she is in AF. Cardizem titrated up to 10mg/hr. Patient ordered flu
and covid swabs but is refusing. Morning meds given, patient states she takes tramadol bid for chronic neck/shoulder pain. TT to Dr. Pineda re: patient's refusal of swabs and re: pain med.
--- NOTE | 2024-03-23 11:28 | PTCARENOTE ---
Remains in AF, HR at rest in the low 100's, IV cardizem increased to 10mg/hr. After one hour the patient stated she felt nauseated and recalled this happening in the past. IV cardizem decreased to 5mg/hr as requested.
[2024-03-23] MEDS: ULTRAM 50 MG PO ×2 (13:07→22:47)
--- NOTE | 2024-03-23 14:07 | CON.CAR ---
Addendum entered and electronically signed by Jean-Claude Frederick MD 03/23/24 16:32:
I saw and examined the patient.
The SKILLS TRAINER's note was reviewed and I agree with the note.
Comment: Her AFib has progressed from paroxysmal to persistent. We can't use Tikosyn because of interaction with Lamictal but we can use sotalol. Hope sotalol converts her to sinus but if not she understands that I will suggest we proceed to a
cardioversion. She is interested in a repeat AFib ablation and we will have her meet with Dr. Mckeon as an outpatient.
Her new heart failure (HFpEF) is of uncertain etiology but its onset after ablation then pericarditis raises that question of constrictive pericarditis and her mild LVH without prior HTN raises the possibilty of amyloid heart diseae.
I anticipate we will evaluate her heart failure as an outpatient.
Will becker check SGLT2-I for her HFpEF and add if co-pay OK.
Plan:
Sotalol
Cardioversion if needed (and patient allows)
Watch QTc/tele for ventricular ectopy
Diuresis
Add SGLT2-I if copay ok
Outpatient AFib ablation consult
Outpatient echo with attention to pericardium/diastolic function once in sinus, cardiac MRI to look at pericardium and look for evidence of infiltrative cardiomyopathy
Outpatient lab work for amyloid and if negative a pyrophosphate nuc med study
Original Note:
Consultation
Consultation Request
Date/Time Consultation Requested: 03/23/23 1255
Date/Time Consultation Performed: 03/23/23 1400
Requesting Provider: Dr. Pineda
Performing Provider: Moira OCHOA for Dr. Frederick
Reason for Consultation: AFIB with RVR
Medical History
-
Chief Complaint: MA, weakness
History of Present Illness:
64 y/o female (Patient of Dr. 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
GERD. She was in the hospital last month with CP. Stress echo was non-diagnostic, but trops were negative and echo was fine and plan was for OP Lexiscan stress test. Of note, she had an afib ablation in [place] in September 2023. She told me that post-op
course was complicated by heart failure and post-op pericarditis, and she was also noted to have HTN and LVH. Lasix and losartan were added at that time. She is here for MA and weakness x 3 days. She came to the ER and is in AFIB with RVR and is
placed on a diltiazem drip. She denies any recent colds, new meds, extra ETOH. She is in no distress at the time of my assessment. Pacemaker interrogated and awaiting results. Otherwise, she has no LE edema, but does have abdominal bloating. She is
on IV diuresis here.
Past Medical History
Past Medical History: Arrhythmias, CHF, GERD, HTN, Seizures, Psychiatric and Other (as above)
Social History
Tobacco: Former Smoker
Alcohol: Other (3-5 days per week 2-3 glasses)
Personal:
Living: With Family
Family History
Family History: Adopted
Allergies / Home Medications
Allergy/AdvReac Type Severity Reaction Status Date / Time
azithromycin [From Zithromax] Allergy Rash Verified 03/22/24 14:06
Influenza Virus Vaccines Allergy sick/neuros Verified 03/22/24 14:06
is
prednisone Allergy mental Verified 03/22/24 14:06
disturbance
steroids Allergy mental Uncoded 03/22/24 14:06
disturbance
�Medication �Instructions �Recorded �Confirmed �Type
lamotrigine 100 mg tablet 100 mg PO DAILY Seizures 01/02/23 03/22/24 History
(Lamictal)
primidone 50 mg tablet 50 mg PO BID Seizures 01/02/23 03/22/24 History
tamsulosin 0.4 mg capsule 0.4 mg PO BID Urinary Issue 01/02/23 03/22/24 History
apixaban 5 mg tablet (Eliquis) 5 mg PO BID #60 tabs 04/17/23 03/22/24 Rx
metoprolol succinate 50 mg 50 mg PO DAILY Heart 04/25/23 03/22/24 History
tablet,extended release 24 hr Disease/Condition
tramadol 50 mg tablet 50 mg PO BID Pain 04/25/23 03/22/24 History
Z-Stack 2 cap PO DAILY 03/01/24 03/22/24 History
losartan 50 mg tablet 50 mg PO DAILY Blood Pressure 03/01/24 03/22/24 History
pantoprazole 40 mg tablet,delayed 40 mg PO DAILY Gastrointestinal 03/01/24 03/22/24 History
release (Protonix) Issue
furosemide 20 mg tablet 20 mg PO BID Fluid 03/22/24 03/22/24 History
Retention/Swelling
ibuprofen 200 mg tablet 400 mg PO DAILYPRN PRN mild pain 03/22/24 03/22/24 History
lamotrigine 100 mg tablet 50 mg PO QPM 03/22/24 03/22/24 History
spironolactone 25 mg tablet 12.5 mg PO DAILY Fluid 03/22/24 03/22/24 History
Retention/Swelling
Review of Systems
-
History Source: Patient
All other systems: Negative unless noted
Constitutional: Other (weakness)
Respiratory: Trouble Breathing
Physical Exam
Vital Signs
Temp Pulse Resp BP Pulse Ox
97.7 F 81 16 126/62 96
03/23/24 11:34 03/23/24 11:45 03/23/24 11:34 03/23/24 11:33 03/23/24 11:34
Lab Results
03/22/24 14:30
03/22/24 14:30
Troponin I < 0.012 ng/ml 03/22/24 14:30
Kaq-G-Ookwsqvqysl Pept Cancelled 03/22/24 14:46
Physical Exam
General: Well Developed, Well Nourished and No Apparent Distress
HEENT: Normocephalic and Anicteric
Respiratory: Clear and Non Labored Respirations
Cardiac: Irregular Rhythm
Musculoskeletal: No Edema
Skin: Warm and Dry
Neuro: AO x 3
Psych: Calm
Impression / Plan
-
AFIB with RVR:
-hx PVI in [place] in September per her report
-continue metoprolol- will increase dose for now, but likely decrease when back in SR. Start sotalol, which requires intensive monitoring. QTC was acceptable on previous recent SR EKG. Will stop diltiazem gtt.
-continue Eliquis. She has no missed doses.
Pjprn-lg-sqlyifn HFpEF: mild
-recent echo as noted below
-BNP 2349 (was 93 last month), abdominal bloating
-agree with IV diuresis, but she takes 40 mg PO BID as OP, so will increase dosing for more effectiveness- this requires intensive monitoring
-as OP, can look into if patient restrictive CM? hx pericarditis
Pacemaker:
-interrogation done, symptoms match when she was in afib with RVR
Hypertension:
-stable on current medicines
-monitor with medicine adjustment
Discussed plan with nursing.
Data Reviewed
-
EKG: Tracing Personally Visualized and interpreted (AFIB with RVR 139 BPM)
Radiology: Report Reviewed by me (CXR 03/22/24: Left-sided cardiac pacemaker in place. 2. Large right pericardial fat pad. 3. Mild subsegmental atelectasis/scarring in the right middle lobe and lingula. )
Medical Tests (Nuc Med, Echo etc): Report Reviewed by me (echo 03/02/24: Normal biventricular size and function. LVEF 60-65%. Poor endocardial visualization limits wall motion analysis. Mild concentric left ventricular hypertrophy. No
significant valvular disease.)
Labs: Labs Reviewed by me
--- NOTE | 2024-03-23 14:47 | CM ---
spoke to pt in room, she is prev indep, lives presently at her son's home while she is relocating to this area. her son is in [place], [place]. the house is 2 story home with 1 step to enter, she has a cpap at home. she denies any dc planning needs.
plan is for dc to hme when medically stable
--- NOTE | 2024-03-23 15:16 | W.PN.HOSP.TC ---
Today's Communication/Plan
-
See PN
Assessment / Plan
Assessment / Plan
64yo F with bipolar, Afib s/p ablation and CV - unsuccessful, HFpEF, essential tremor, seizure d/o came with 3 days of SOB, weakness, more pronounced in shoulders for past 3 days. Managed for CHF exacerbation and Afib with RVR
#Generalized weakness, more pronounced in shoulder griddle
multifactorial
2/2 CHF and Afib poor control
patient declined COVID-19 and Influenza swab
check cortisol AM, TSH nd ESR
#Afib with RVR
Diltiazem drip
cardio consult
telemetry
Eliquis
#Acute on chronic HFpEF
Lasix, daily weight, I&O, follow electrolyts, Cr trend
#SSS s/p PPM
interrogate by card
#Essential HTN
#Seizure d/o
#Essential tremior
#Bipolar disorder
#Hx of [place] palsy
cont home meds
seizure precautions
DVT ppx Eliquis
Full code
I have spent at least 59min reviewing chart, test results, communication with consultants and direct patient care
Anticipated Discharge: > 48 hours
Subjective/Interval History
-
Date of Service: March 23, 2024
Objective Data
-
Vital Signs:
Vital Signs
Temp Pulse Resp BP Pulse Ox
97.7 F 81 16 126/62 96
03/23/24 11:34 03/23/24 11:45 03/23/24 11:34 03/23/24 11:33 03/23/24 11:34
I&O
03/22/24 03/23/24 03/24/24
06:59 06:59 06:59
Intake Total 585 / 585 240 / 240
Output Total 300 / 300 750 / 750
Balance 285 / 285 -510 / -510
Review of Systems
-
History Source: Patient
All other systems: Reviewed and negative
Physical Exam
-
General: No Apparent Distress
HEENT: Normocephalic and Atraumatic
Respiratory: Clear to Auscultation
Cardiac: Irregular Rhythm
GI: Soft, Nontender and Nondistended
Skin: Warm
Neuro: Awake, Alert, Oriented and AO x 3
Psych: Calm
[2024-03-23 16:39] LABS: Troponin I < 0.012 ng/ml
[2024-03-23] MEDS: LASIX 40 MG IV (16:39)
[2024-03-23] MEDS: BETAPACE 120 MG PO (20:19)
[2024-03-23] MEDS: ULTRAM PO ×2 (20:20→22:44)
--- NOTE | 2024-03-23 23:36 | PTCARENOTE ---
Pt rec'd at beginning of shift awake,alert refusing pm dose of pain medication at beginning of shift. Pt stated she would take it at HS since she received firsts dose late. 12 lead ecg 2 hrs post Sotalol dose 500. Pt remains in afib low 100.
Pt educated on Fluid restriction after asking freq for cups of water.
[2024-03-24] VITALS (11 sets, daily range): BP systolic 88–112; BP diastolic 53–78; BMI 28.8
[2024-03-24 05:47] LABS: % Basophils 1.2 % (0-2); % Eosinophils 4.7 % (0-6); % Immature Granulocytes 0.2 % (0-0.5); % Lymphocytes 38.6 % (20.5-51.1); % Monocytes 9.4 % (1.7-9.3); % Neutrophils 45.9 % (42.2-75.2); Absolute Basophils 0.1 10^3/uL (0-0.2); Absolute Eosinophils 0.2 10^3/uL (0-0.7); Absolute Monocytes 0.5 10^3/uL (0.1-0.6); Absolute Neutrophils 2.3 10^3/uL (1.4-6.5); Hematocrit 41.5 % (37.0-47.0); Hemoglobin 14.1 g/dL (12.0-16.0); Mean Corpuscular Hgb 31.8 pg (27.0-31.0); Mean Corpuscular Volume 93.7 fL (81.0-99.0); Mean Platelet Volume 9.6 fL (7.4-10.4); Nucleated Red Blood Cells % 0 %; Platelet Count 249 10^3/uL (130-400); Red Blood Cell Count 4.43 10^6/uL (4.20-5.40); Red Cell Dist. Width 11.8 % (11.5-14.5); White Blood Cell Count 5.1 10^3/uL (4.8-10.8)
[2024-03-24 06:37] LABS: Cortisol, Random 6.8 ug/dl; TSH Reflex To Free T4 8.37 uIU/ml (0.47-4.68)
[2024-03-24 06:54] LABS: ALT (SGPT) 25 U/L (0-35); AST (SGOT) 36 U/L (14-36); Albumin 4.2 g/dl (3.5-5.0); Alkaline Phosphatase 60 U/L (38-126); Blood Urea Nitrogen 21 mg/dl (7-17); Calcium 9.2 mg/dl (8.4-10.2); Carbon Dioxide 25 mmol/L (22-30); Chloride 98 mmol/L (98-107); Estimated Creatinine Clearance 86 ml/min; Glucose 108 mg/dl (70-99); Potassium 3.9 mmol/L (3.5-5.1); Sodium 134 mmol/L (135-145); Total Bilirubin 0.8 mg/dl (0.2-1.3); Total Protein 7.2 g/dl (6.3-8.2); eGFR > 60.00
[2024-03-24 07:06] LABS: Free T4 1.24 ng/dl (0.78-2.19)
[2024-03-24] MEDS: BETAPACE 120 MG PO ×2 (08:50→20:09)
[2024-03-24] MEDS: SYNTHROID 25 MCG PO (08:50)
[2024-03-24] MEDS: TOPROL XL PO (09:02)
[2024-03-24] MEDS: PROTONIX 40 MG PO (09:04)
[2024-03-24] MEDS: ELIQUIS 5 MG PO ×2 (09:06→20:09)
[2024-03-24] MEDS: MYSOLINE 50 MG PO ×2 (09:06→20:09)
[2024-03-24] MEDS: ULTRAM 50 MG PO ×2 (09:06→20:09)
[2024-03-24] MEDS: LAMICTAL 100 MG PO (09:07)
[2024-03-24 09:14] LABS: Erythrocyte Sed Rate 16 mm/hour (0-20)
[2024-03-24] MEDS: FLOMAX 0.4 MG PO ×2 (09:57→20:09)
--- NOTE | 2024-03-24 09:57 | W.PN.CD ---
Today's Communication / Plan
-
Continue sotalol loading, watch tele/ekg's
Decrease metoprolol as BP is soft, allow faster AFib rates
Plan cardioversion 03/26/2023 if still in AFib
Move to Lasix 40 mg po one time daily
Add SGLT2-I if co-pay ok => I placed case management consult
Advance GDMT for HFpEF over time
Outpatient echo (when in sinus) in a few months with attention to pericardium/diastolic function once in sinus, cardiac MRI to look at pericardium and look for evidence of infiltrative cardiomyopathy
Outpatient lab work for amyloid and if negative a pyrophosphate nuc med study
Outpatient ablation consult
Impression / Plan
-
AFIB with RVR, persistent, recurrent after ablation in [place] 09/2023
-Loading sotalol
-Decreae metoprolol for soft BP
-continue Eliquis. She has no missed doses
- Cardioversion 03/26/2023 if still in AFib
-can't use Tikosyn because of interaction with Lamictal
-She is interested in a repeat AFib ablation and we will have her meet with Dr. Mckeon as an outpatient.
Aqmsu-yg-dzkxdde HFpEF: mild
-recent echo as noted below
-uncertain etiology but its onset after ablation then pericarditis raises that question of constrictive pericarditis and her mild LVH without prior HTN raises the possibility of amyloid heart disease.
-BNP 2349 (was 93 last month), abdominal bloating
-STOP IV Lasix today and try once daily Lasix at 40 (outpt was 20 bid)
-Outpatient echo with attention to pericardium/diastolic function once in sinus, cardiac MRI to look at pericardium and look for evidence of infiltrative cardiomyopathy
-Outpatient lab work for amyloid and if negative a pyrophosphate nuc med study
-Add SGLT2-I if copay ok
Sick sinus syndrome, pacemaker: Nml function. Interrogation done, symptoms match when she was in afib with RVR
Hypertension, recent onset, BP ok
Subjective:
Still weak
AFib still fast
Tolerating sotalol
Physical Exam
Vital Signs/Labs
Vital Signs
Temp Pulse Resp BP Pulse Ox
98.3 F 98 16 91/75 95
03/24/24 07:02 03/24/24 08:00 03/24/24 07:02 03/24/24 08:50 03/24/24 07:02
03/23/24 03/24/24 03/25/24
06:59 06:59 06:59
Actual Weight 91 kg 91.1 kg
03/24/24 04:33
03/24/24 04:33
Magnesium 2.0 mg/dl (1.6-2.3) 03/24/24 04:33
Free T4 1.24 ng/dl (0.78-2.19) 03/24/24 04:33
03/22/24 03/22/24
14:30 14:46
Bpv-H-Froacntdsxg Pept 2340 Cancelled
LAB Results
03/22/24 03/23/24
14:30 16:09
Troponin I < 0.012 < 0.012
Physical Exam
Constitutional: No acute distress
EENT: Anicteric
Cardiovascular: Rhythm/rate is irregular
Respiratory: Respiratory effort normal and Lungs clear to auscul.
GI: Soft and Distention absent
Neuro/Psych: AO x 3
Data Reviewed
-
Date of Service: March 24, 2024
--- NOTE | 2024-03-24 10:03 | CM ---
priced farxiga and jardiance with pts pharmacy- [facility]
farxiga is non-formulary
jardiance is $43/month
--- NOTE | 2024-03-24 10:37 | PTCARENOTE ---
Patient converted to NSR. Paced beats noted. Some runs of Afib with PACs noted as well. MD aware. EKG confirmed NSR
[2024-03-24] MEDS: LASIX 40 MG IV (11:18)
[2024-03-24] MEDS: ALDACTONE 12.5 MG PO (11:20)
--- NOTE | 2024-03-24 12:22 | W.PN.HOSP.TC ---
Today's Communication/Plan
-
con mgmt as per card - noted oral lasix
watch BP
might need CV
Assessment / Plan
Assessment / Plan
64yo F with bipolar, Afib s/p ablation and CV - unsuccessful, HFpEF, essential tremor, seizure d/o came with 3 days of SOB, weakness, more pronounced in shoulders for past 3 days. Managed for CHF exacerbation and Afib with RVR, started on soltalol
#Generalized weakness, more pronounced in shoulder griddle
multifactorial
2/2 CHF and Afib poor control
patient declined COVID-19 and Influenza swab
check cortisol AM, TSH nd ESR
#Afib with RVR
Diltiazem drip switched to Soltalol
cardio consult: posible CV
telemetry
Eliquis
#Acute on chronic HFpEF
Lasix, daily weight, I&O, follow electrolytes, Cr trend
#Subclinical hypothyroidism
started low dose synthroid
TSH in 2-3 weeks with PCP - patient verbalized understanding
#SSS s/p PPM
interrogate by card
#Essential HTN
#Seizure d/o
#Essential tremior
#Bipolar disorder
#Hx of L [place] palsy
cont home meds
seizure precautions
DVT ppx Eliquis
Full code
I have spent at least 39min reviewing chart, test results, communication with consultants and direct patient care
Anticipated Discharge: > 48 hours
Subjective/Interval History
-
Date of Service: March 24, 2024
Objective Data
-
Labs:
Laboratory Results
03/24/24
04:33
WBC 5.1
Hgb 14.1
Hct 41.5
Plt Count 249
Sodium 134 L
Potassium 3.9
Chloride 98
Carbon Dioxide 25
BUN 21 H
Creatinine 0.8
Glucose 108 H
Calcium 9.2
Total Bilirubin 0.8
AST 36
ALT 25
Alkaline Phosphatase 60
Vital Signs:
Vital Signs
Temp Pulse Resp BP Pulse Ox
98.3 F 63 16 107/74 95
03/24/24 07:02 03/24/24 11:19 03/24/24 07:02 03/24/24 11:20 03/24/24 07:02
I&O
03/23/24 03/24/24 03/25/24
06:59 06:59 06:59
Intake Total 585 / 585 1200 / 1200 480 / 480
Output Total 300 / 300 2450 / 2450
Balance 285 / 285 -1250 / -1250 480 / 480
Review of Systems
-
History Source: Patient
All other systems: Reviewed and negative
Cardiac: Reports Palpitations
Physical Exam
-
General: No Apparent Distress
HEENT: Normocephalic
Respiratory: Clear to Auscultation
Cardiac: Irregular Rhythm
GI: Soft, Nontender and Nondistended
Musculoskeletal: No Clubbing, No Cyanosis and No Edema
Neuro: Awake, Alert, Oriented and AO x 3
Psych: Calm
[2024-03-24] MEDS: LAMICTAL 50 MG PO (12:44)
[2024-03-24] MEDS: COZAAR 50 MG PO (12:45)
[2024-03-24] MEDS: TOPROL XL 50 MG PO (22:14)
[2024-03-25] VITALS (8 sets, daily range): BP systolic 87–111; BP diastolic 50–76; BMI 28.9
--- NOTE | 2024-03-25 01:03 | PTCARENOTE ---
Rec'd pt at change of shift. Pt AAO*3, VSS, and pt on tele monitor in SR/Apaced rhythm. Pt reports pain in back of neck and schedules Ultram given as ordered (see mar). Pt updated and agreeable to plan of care. Pt resting with call maria in
reach. Plan of care ongoing.
[2024-03-25 05:06] LABS: Blood Urea Nitrogen 28 mg/dl (7-17); Carbon Dioxide 32 mmol/L (22-30); Chloride 96 mmol/L (98-107); Estimated Creatinine Clearance 69 ml/min; Glucose 103 mg/dl (70-99); Potassium 4.3 mmol/L (3.5-5.1); Sodium 135 mmol/L (135-145); eGFR > 60.00
[2024-03-25] MEDS: SYNTHROID 25 MCG PO (08:16)
[2024-03-25] MEDS: LASIX 40 MG PO (08:16)
[2024-03-25] MEDS: ELIQUIS 5 MG PO ×2 (08:17→19:51)
[2024-03-25] MEDS: BETAPACE 120 MG PO ×2 (08:17→19:53)
[2024-03-25] MEDS: LAMICTAL 100 MG PO (08:18)
[2024-03-25] MEDS: ULTRAM 50 MG PO ×2 (08:18→19:51)
[2024-03-25] MEDS: FLOMAX 0.4 MG PO ×2 (08:18→19:51)
[2024-03-25] MEDS: MYSOLINE 50 MG PO ×2 (08:18→19:53)
[2024-03-25] MEDS: PROTONIX 40 MG PO (08:18)
[2024-03-25] MEDS: COZAAR 50 MG PO (08:19)
[2024-03-25] MEDS: ALDACTONE 12.5 MG PO (08:19)
--- NOTE | 2024-03-25 09:55 | PTCARENOTE ---
Assumed care of pt from night RN. Pt received awake and alert, Ox3. VSs, CM shows NSR with A/pacing. 4th Sotalol dose given, will check EKG at 10:20 as per protocol. B/P running a little soft 90's systolic. She denies any pain or discomfort.
--- NOTE | 2024-03-25 10:48 | W.PN.HOSP.TC ---
Today's Communication/Plan
-
pending final card reccs
Assessment / Plan
Assessment / Plan
64yo F with bipolar, Afib s/p ablation s/p PPM, and CV - unsuccessful, HFpEF, essential tremor, seizure d/o came with 3 days of SOB, weakness, more pronounced in shoulders for past 3 days. Managed for CHF exacerbation and Afib with RVR, started on
soltalol and converted to sinus rhythm on 03/25/24
#Generalized weakness, more pronounced in shoulder griddle
multifactorial
2/2 CHF and Afib poor control
patient declined COVID-19 and Influenza swab
cortisol AM supressed 2/2 steroids, no symptoms of adrenal insufficiency
ESR WNL
#Afib with RVR
Diltiazem drip switched to Soltalol
cardio consult
telemetry
Eliquis
#Acute on chronic HFpEF
Lasix, daily weight, I&O, follow electrolytes, Cr trend
#Subclinical hypothyroidism
started low dose synthroid
TSH in 2-3 weeks with PCP - patient verbalized understanding
#SSS s/p PPM
interrogate by card
#Essential HTN
#Seizure d/o
#Essential tremior
#Bipolar disorder
#Hx of L [place] palsy
cont home meds
seizure precautions
DVT ppx Eliquis
Full code
I have spent at least 39min reviewing chart, test results, communication with consultants and direct patient care
Anticipated Discharge: Within 24 hours
Subjective/Interval History
-
Date of Service: March 25, 2024
Objective Data
-
Labs:
Laboratory Results
03/25/24
04:26
Sodium 135
Potassium 4.3
Chloride 96 L
Carbon Dioxide 32 H
BUN 28 H
Creatinine 1.0
Glucose 103 H
Calcium 9.0
Vital Signs:
Vital Signs
Temp Pulse Resp BP Pulse Ox
98.4 F 62 20 90/59 94
03/25/24 07:09 03/25/24 08:00 03/25/24 07:09 03/25/24 08:17 03/25/24 09:42
I&O
03/24/24 03/25/24 03/26/24
06:59 06:59 06:59
Intake Total 1200 / 1200 1530 / 1530
Output Total 2450 / 2450 1040 / 1040
Balance -1250 / -1250 490 / 490
Review of Systems
-
History Source: Patient
All other systems: Reviewed and negative
Physical Exam
-
General: No Apparent Distress
HEENT: Normocephalic
Respiratory: Clear to Auscultation
Cardiac: Regular Rhythm
GI: Soft
Neuro: Awake, Alert, Oriented and AO x 3
Psych: Calm
--- NOTE | 2024-03-25 11:49 | CM ---
CM following for DC planning needs.
Reviewed patient's initial assessment. Pt. resides in a private, 2 story home (son's home) w/ spouse.
Pt. is functionally indep. at baseline w/ ADLs, mobility without the use of any assisted device.
Of note, CM has priced Jardiance + Farxiga thru patient's RX plan; Jardiance is estimated to be $43/mo (Farxiga is non formulary). Patient has declined this, stating this medication is too much $.
Will cont. to follow.
[2024-03-25] MEDS: LAMICTAL 50 MG PO (12:01)
--- NOTE | 2024-03-25 15:39 | W.PN.CD ---
Today's Communication / Plan
-
Home after 6 doses of sotalol on the new lower dose of BB and the new dose of diuretic
Outpatient echo (when in sinus) in a few months with attention to pericardium/diastolic function once in sinus
Outpatient cardiac MRI to look at pericardium and look for evidence of infiltrative cardiomyopathy
Outpatient lab work for amyloid and if negative a pyrophosphate nuc med study
Outpatient ablation consult if pt wishes
Impression / Plan
-
AFIB with RVR, persistent, recurrent after ablation in [place] 09/2023
-Loading sotalol => she converted to sinus on 03/24/2023 after just several doses of sotalol
- She felt immediately better in sinus
-Decreased metoprolol for soft BP
-continue Eliquis. She has no missed doses
- Cardioversion 03/26/2023 if still in AFib
-can't use Tikosyn because of interaction with Lamictal
-She is interested in a repeat AFib ablation and we will have her meet with Dr. Mckeon as an outpatient. But she may just stick with sotalol for now.
Nrdeu-sw-oevmevg HFpEF: mild
-recent echo as noted below
-uncertain etiology but its onset after ablation then pericarditis raises that question of constrictive pericarditis and her mild LVH without prior HTN raises the possibility of amyloid heart disease.
-BNP 2349 (was 93 last month), abdominal bloating
-STOPPED IV Lasix now on Lasix at 40 daily. (outpt was 20 bid)
-Outpatient echo with attention to pericardium/diastolic function once in sinus, cardiac MRI to look at pericardium and look for evidence of infiltrative cardiomyopathy
-Outpatient lab work for amyloid and if negative a pyrophosphate nuc med study
- SGLT2-I co-pay of $43/month was TOO much => will not add
Sick sinus syndrome, pacemaker: Nml function. Interrogation done on admit, symptoms match when she was in afib with RVR
Hypertension, recent onset, BP ok
Subjective:
Feel much better in sinus/a-pace
Tolerating sotalol
Physical Exam
Vital Signs/Labs
Vital Signs
Temp Pulse Resp BP Pulse Ox
98.6 F 62 20 111/70 94
03/25/24 15:12 03/25/24 12:13 03/25/24 15:12 03/25/24 12:13 03/25/24 15:12
03/24/24 03/25/24 03/26/24
06:59 06:59 06:59
Actual Weight 91.1 kg 91.5 kg
03/24/24 04:33
03/25/24 04:26
Magnesium 2.0 mg/dl (1.6-2.3) 03/25/24 04:26
Free T4 1.24 ng/dl (0.78-2.19) 03/24/24 04:33
03/22/24 03/22/24
14:30 14:46
Yya-G-Vpivnixtvbd Pept 2340 Cancelled
LAB Results
03/23/24
16:09
Troponin I < 0.012
Physical Exam
Constitutional: No acute distress
EENT: Anicteric
Cardiovascular: Rhythm & rate is regular and Pedal edema is absent
Respiratory: Respiratory effort normal and Lungs clear to auscul.
GI: Soft and Distention absent
Neuro/Psych: Alert
Data Reviewed
-
Date of Service: March 25, 2024
[2024-03-25] MEDS: TOPROL XL 50 MG PO (22:48)
[2024-03-26 05:27] VITALS: BP 105/58
[2024-03-26] MEDS: SYNTHROID 25 MCG PO (05:29)
[2024-03-26 05:31] VITALS: BMI 28.8
[2024-03-26 07:13] VITALS: BP 109/67
[2024-03-26] MEDS: ULTRAM 50 MG PO (07:53)
[2024-03-26] MEDS: PROTONIX 40 MG PO (07:54)
[2024-03-26] MEDS: BETAPACE 120 MG PO (07:54)
[2024-03-26] MEDS: ALDACTONE 12.5 MG PO (07:54)
[2024-03-26] MEDS: COZAAR 50 MG PO (07:56)
[2024-03-26] MEDS: ELIQUIS 5 MG PO (07:56)
[2024-03-26] MEDS: MYSOLINE 50 MG PO (07:56)
[2024-03-26] MEDS: FLOMAX 0.4 MG PO (07:57)
[2024-03-26] MEDS: LASIX 40 MG PO (07:57)
[2024-03-26] MEDS: LAMICTAL 100 MG PO (07:57)
--- NOTE | 2024-03-26 08:21 | W.PN.CD ---
Today's Communication / Plan
-
discharge today
will follow up with [facility]
Impression / Plan
-
AFIB with RVR, persistent, recurrent after ablation in [place] 09/2023
-Loading sotalol => she converted to sinus on 03/24/2023 after just several doses of sotalol; cont. sotolol; EKG with normal qTC
-She felt immediately better in sinus
-Decreased metoprolol for soft BP
-continue Eliquis.
-can't use Tikosyn because of interaction with Lamictal
-She is interested in a repeat AFib ablation and we will have her meet with Dr. Mckeon as an outpatient. But she may just stick with sotalol for now.
Euqia-qq-lepfghr HFpEF: mild
-recent echo as noted below
-uncertain etiology but its onset after ablation then pericarditis raises that question of constrictive pericarditis and her mild LVH without prior HTN raises the possibility of amyloid heart disease.
-BNP 2349 (was 93 last month), abdominal bloating
-STOPPED IV Lasix now on Lasix at 40 daily. (outpt was 20 bid); examines euvolemic
-Outpatient echo with attention to pericardium/diastolic function once in sinus, cardiac MRI to look at pericardium and look for evidence of infiltrative cardiomyopathy
-Outpatient lab work for amyloid and if negative a pyrophosphate nuc med study
-SGLT2-I co-pay of $43/month was TOO much => will not add
Sick sinus syndrome, pacemaker: Nml function. Interrogation done on admit, symptoms match when she was in afib with RVR
Hypertension, recent onset, BP ok; patient describes only recently needing to be on antihypertensives; if hypertension continues to worsen would consider outpatient workup for secondary causes
Subjective:
Feel much better in sinus/a-pace
Tolerating sotalol
Physical Exam
Vital Signs/Labs
Vital Signs
Temp Pulse Resp BP Pulse Ox
37.3 C 65 20 109/67 93
03/26/24 07:10 03/26/24 07:57 03/26/24 07:10 03/26/24 07:57 03/26/24 07:10
03/25/24 03/26/24 03/27/24
06:59 06:59 06:59
Actual Weight 91.5 kg 91 kg
03/24/24 04:33
03/25/24 04:26
Magnesium 2.0 mg/dl (1.6-2.3) 03/25/24 04:26
Free T4 1.24 ng/dl (0.78-2.19) 03/24/24 04:33
03/22/24 03/22/24
14:30 14:46
Vtb-Q-Qeiatftmtia Pept 2340 Cancelled
LAB Results
03/23/24
16:09
Troponin I < 0.012
Physical Exam
Constitutional: No acute distress
Cardiovascular: Rhythm & rate is regular
Respiratory: Respiratory effort normal
Neuro/Psych: AO x 3
Data Reviewed
-
Date of Service: March 26, 2024
Medical Decision Making: External Notes and Reviewed Test Results
EKG: Tracing Personally Visualized and interpreted
Labs: Labs Reviewed by me
--- NOTE | 2024-03-26 10:27 | PTCARENOTE ---
EKG done post betapase dose this am.
--- NOTE | 2024-03-26 11:58 | CM ---
CM following for DC planning needs.
Met w/ patient at bedside. Pt. feels well, is hopeful for DC soon. She declines any needs at time of DC.
Of note, CM had priced Jardiance, estimated cost is $43/mo and patient is not agreeable to this cost.
Plan is home, no needs.
--- NOTE | 2024-03-26 12:13 | W.PN.HOSP.TC ---
Today's Communication/Plan
-
DC
Assessment / Plan
Assessment / Plan
64yo F with bipolar, Afib s/p ablation s/p PPM, and CV - unsuccessful, HFpEF, essential tremor, seizure d/o came with 3 days of SOB, weakness, more pronounced in shoulders for past 3 days. Managed for CHF exacerbation and Afib with RVR, started on
sotalol and converted to sinus rhythm on 03/25/24, as per card - cont on sotalol and d/c. Symptoms much improved
A/P
#Generalized weakness, more pronounced in shoulder griddle
multifactorial
2/2 CHF and Afib poor control
patient declined COVID-19 and Influenza swab
cortisol AM supressed 2/2 steroids, no symptoms of adrenal insufficiency
ESR WNL
#Afib with RVR
Diltiazem drip switched to Soltalol
cardio consult
telemetry
Eliquis
#Acute on chronic HFpEF
Lasix, daily weight, I&O, follow electrolytes, Cr trend
#Subclinical hypothyroidism
started low dose synthroid
TSH in 2-3 weeks with PCP - patient verbalized understanding
#SSS s/p PPM
interrogate by card
#Essential HTN
#Seizure d/o
#Essential tremior
#Bipolar disorder
#Hx of [place] palsy
cont home meds
seizure precautions
DVT ppx Eliquis
Full code
I have spent at least 39min reviewing chart, test results, communication with consultants and direct patient care
Anticipated Discharge: Today
Subjective/Interval History
-
Date of Service: March 26, 2024
Objective Data
-
Vital Signs:
Vital Signs
Temp Pulse Resp BP Pulse Ox
98.2 F 67 20 109/67 94
03/26/24 11:41 03/26/24 10:00 03/26/24 11:41 03/26/24 07:57 03/26/24 11:41
I&O
03/25/24 03/26/24 03/27/24
06:59 06:59 06:59
Intake Total 1530 / 1530 960 / 960 750 / 750
Output Total 1040 / 1040 600 / 600
Balance 490 / 490 360 / 360 750 / 750
Review of Systems
-
History Source: Patient
All other systems: Reviewed and negative
Physical Exam
-
General: No Apparent Distress
HEENT: Normocephalic
Respiratory: Clear to Auscultation
Cardiac: Regular Rhythm
Neuro: Awake, Alert, Oriented and AO x 3
Psych: Calm
--- NOTE | 2024-03-26 12:19 | W.DCSUMMARY ---
Discharge Summary
Discharge Data
Date of Admission: 03/22/24
Date of Discharge: 03/26/24
-
Pending Results: No
Hospital Course
64yo F with bipolar, Afib s/p ablation s/p PPM, and CV - unsuccessful, HFpEF, essential tremor, seizure d/o came with 3 days of SOB, weakness, more pronounced in shoulders for past 3 days. Managed for CHF exacerbation and Afib with RVR, started on
sotalol and converted to sinus rhythm on 03/25/24, as per card - cont on sotalol and d/c. Symptoms much improved
I have spent at least 39min reviewing chart, test results, communication with consultants and direct patient care
Patient was managed for:
#Generalized weakness, more pronounced in shoulder griddle
#Afib with RVR
#Acute on chronic HFpEF
#Subclinical hypothyroidism
#SSS s/p PPM
#Essential HTN
#Seizure d/o
#Essential tremior
#Bipolar disorder
#Hx of L [place] palsy
Discharge Plan
-
Patient Disposition: Home (Routine Discharge)
Discharge Diagnosis/Procedures: Afib
Diet: No restrictions and 2 Gram Sodium
Activity: As tolerated
Driving Restrictions: As prior to admission
Activity Restrictions/Additional Instructions:
Check thyroid function test with family doctor in 2-3 weeks
Instructions: *PCP/Other Instructor Physical Education Heart Failure Instructions
Referrals:
Moira Adan CRNP [Specified Professional Personl] - 04/10/24 1:00 pm
UNKNOWN - PT DOES,NOT KNOW [Family Provider] -
Prescriptions:
New
furosemide 40 mg Tablet
40 mg PO DAILY Qty: 30 0RF
metoprolol succinate 50 mg Tablet Extended Release 24 Hr
50 mg PO DAILY@1999 Qty: 30 0RF
sotalol 120 mg Tablet
120 mg PO BID Qty: 60 0RF
levothyroxine 25 mcg Tablet
25 mcg PO DAILY @ 0600 Qty: 30 0RF
Continued
primidone 50 mg tablet
50 mg PO BID
tamsulosin 0.4 mg capsule
0.4 mg PO BID
lamotrigine [Lamictal] 100 mg tablet
100 mg PO DAILY
Eliquis 5 mg tablet
5 mg PO BID Qty: 60 0RF
tramadol 50 mg Tablet
50 mg PO BID
metoprolol succinate 50 mg tablet extended release 24 hr
50 mg PO DAILY
losartan 50 mg Tablet
50 mg PO DAILY
pantoprazole [Protonix] 40 mg Tablet,Delayed Release (Dr/Ec)
40 mg PO DAILY
spironolactone 25 mg Tablet
12.5 mg PO DAILY
lamotrigine 100 mg Tablet
50 mg PO QPM
Discontinued
Z-Stack capsule
2 cap PO DAILY
Patient Comments:
Quercetin & Rutin Supplements, Vitamin C Supplements ,
Vitamin D Supplements Review (Including Calcium, Magnesium, Vitamin K, and [place])
ibuprofen 200 mg Tablet
400 mg PO DAILYPRN PRN (Reason: mild pain)
furosemide 20 mg Tablet
20 mg PO BID
Discharge Orders:
Discharge Patient (As Directed); Ordered 03/26/24
Ordered By: Garfield Pineda
Care Plan Goals
Care Plan Goals:
Problem: Readiness for enhanced knowledge related to diagnosis and treatment plan
Goal: Understand your diagnosis and treatment plan needs, including medications if applicable.
Instructions: Know your diagnosis, underlying causes and treatment plan options, including medications if applicable. Consult with your health care team to learn about your diagnosis and treatment plan, including medications if applicable.
Discharge Date and Time
Print Language: CITIZEN OF [place]
[2024-03-26] MEDS: LAMICTAL 50 MG PO (12:59)
== END 2024-03-26 14:40 | disposition home or self-care (01) | DRG 291 ==
LOC: IVU 18:23
PROVIDERS: Emergency Medicine; ADMITTING PHYSICIAN Internal Medicine; ATTENDING PHYSICIAN Internal Medicine; CONSULT PHYSICIAN Internal Medicine Cardiovascular Disease; EMERGENCY PHYSICIAN Emergency Medicine
DX: I11.0 Hypertensive heart disease with heart failure (principal); I50.33 Acute on chronic diastolic (congestive) heart failure; I48.19 Other persistent atrial fibrillation; I48.92 Unspecified atrial flutter; Z87.891 Personal history of nicotine dependence; I49.5 Sick sinus syndrome; E03.8 Other specified hypothyroidism; F31.9 Bipolar disorder, unspecified
CPT/HCPCS: 71046; 80048; 80053; 82533; 83735; 83880; 84439; 84443; 84484; 85025; 85652; 93005; 96374; 96375; 99291

== ENCOUNTER → 2024-05-06 08:13 | Outpatient (REF) | payer MEDICARE, OTHER, SELFPAY | LOC: MRI 08:13 | PROVIDERS: ATTENDING PHYSICIAN Nurse Practitioner | DX: I50.32 Chronic diastolic (congestive) heart failure (principal) | CPT/HCPCS: 75561; 75565; A9585 ==

== ENCOUNTER → 2024-05-11 07:09 | Outpatient (REF) | payer MEDICARE, OTHER, SELFPAY ==
[2024-05-11] MEDS: LEXISCAN 0.4 MG IV (08:49)
[2024-05-11] MEDS: FLUSH (NSS) 1 FLUSH IV (08:50)
== END ==
LOC: RCS 07:09
PROVIDERS: ATTENDING PHYSICIAN Internal Medicine Cardiovascular Disease
DX: R07.89 Other chest pain (principal)
CPT/HCPCS: 78452; 93017; A9500; J2785

== ENCOUNTER → 2024-05-12 14:44 | Outpatient (REF) | payer MEDICARE, OTHER, SELFPAY | LOC: RCS 14:44 | PROVIDERS: ATTENDING PHYSICIAN Nurse Practitioner | DX: I50.32 Chronic diastolic (congestive) heart failure (principal); I48.0 Paroxysmal atrial fibrillation; Z86.79 Personal history of other diseases of the circulatory system; R06.09 Other forms of dyspnea | CPT/HCPCS: 93308; 93321; 93325 ==